=== PATIENT | female | born 1965 | race Caucasian/White ===

== ENCOUNTER 2023-02-04 12:14 | Emergency (ER) | payer MEDICAID ==
[~2023-02-04] VITALS: Ht 165.1 cm; Wt 104.5 kg
[2023-02-04 12:43] LABS: Urine Bacteria NONE SEEN /hpf (None Seen); Urine Blood Negative /uL (Negative); Urine Specific Gravity 1.012 (1.001-1.035); Urine WBC <1 /hpf (0 - 5)
[2023-02-04 13:08] VITALS: BP 136/66
[2023-02-04 13:28] LABS: Basophils # (auto) 0 10 ^3/uL (0-0.2); Basophils % (auto) 0.7 % (0.0-2.0); Eosinophils # (auto) 0.1 10 ^3/uL (0-0.8); Eosinophils % (auto) 2.4 % (0.0-7.0); Hematocrit 38.1 % (36.0-46.0); Hemoglobin 13.2 g/dL (12.2-16.2); Lymphocytes # (auto) 2.3 10 ^3/uL (0.4-5.4); Lymphocytes % (auto) 43.3 % (10.0-50.0); Mean Corpuscular Hemoglobin 31.4 pg (28.0-32.0); Mean Corpuscular Hgb Conc. 34.6 g/dL (32.0-36.0); Mean Corpuscular Volume 90.7 fL (80.0-100.0); Monocytes # (auto) 0.3 10 ^3/uL (0-1.3); Monocytes % (auto) 5.9 % (0.0-12.0); Neutrophils # (auto) 2.6 10 ^3/uL (1.6-8.6); Neutrophils % (auto) 47.7 % (37.0-80.0); Nucleated Red Blood Cells % 0.1 %; Red Cell Distribution Width 12.7 % (11.8-14.3); White Blood Cell 5.4 10^3/uL (4.4-10.8)
[2023-02-04 13:39] LABS: Albumin 3.7 g/dL (3.4-5.0); Calcium 8.8 mg/dL (8.5-10.1); Potassium 3.9 mmol/L (3.5-5.1)
[2023-02-04 13:43] LABS: BUN/Creatinine Ratio 18.2 (10.0-20.0); Bilirubin, Total 0.4 mg/dL (0.2-1.0); Total Protein 7.1 g/dL (6.4-8.2)
[2023-02-04] MEDS ORDERED: KETOROLAC TROMETH 60MG/2ML VIAL IM ONE (14:45)
[2023-02-04] MEDS ORDERED: CIPR-173 PO (14:57)
[2023-02-04] MEDS ORDERED: ZOFR4T PO (14:57)
[2023-02-04] MEDS ORDERED: METR375C PO (14:58)
== END 2023-02-04 15:02 | disposition home or self-care (01) ==
LOC: ER 12:14
DX: N20.0 Calculus of kidney (principal); K57.32 Diverticulitis of large intestine without perforation or abscess without bleeding; E11.9 Type 2 diabetes mellitus without complications; I10 Essential (primary) hypertension
CPT/HCPCS: 36415; 74176; 80053; 81001; 83690; 85025; 96372; 99285; J1885

== ENCOUNTER 2024-06-01 08:29 | Emergency (ER) | payer MEDICAID ==
[~2024-06-01] VITALS: Ht 160 cm; Wt 92.2 kg
[~2024-06-01 08:29] MED LIST: CIPR-173 PO; METR375C PO; ZOFR4T PO
[2024-06-01 09:05] VITALS: BP 131/80; PULSE 74; RESP 16; TEMP 97.7; O2SAT 96
[2024-06-01] MEDS: ACETAMINOPHEN 500 MG TAB PO ONE (09:15)
[2024-06-01] MEDS ORDERED: AZIT500T66 PO (09:17)
[2024-06-01] MEDS: cefTRIAXone SOD 1,000 MG VL IM ONE (09:22)
== END 2024-06-01 09:31 | disposition home or self-care (01) ==
LOC: ER 08:29
DX: J02.9 Acute pharyngitis, unspecified (principal); J04.0 Acute laryngitis; I10 Essential (primary) hypertension; E11.9 Type 2 diabetes mellitus without complications; M19.90 Unspecified osteoarthritis, unspecified site; Z79.899 Other long term (current) drug therapy
CPT/HCPCS: 96372; 99283; J0696

== ENCOUNTER 2025-03-31 08:04 | Inpatient (IN) | payer MEDICAID ==
[~2025-03-31] VITALS: Ht 160 cm; Wt 96.5 kg
[~2025-03-31 08:04] MED LIST changes: +AZIT500T66 PO
--- NOTE | 2025-03-31 08:44 | ED.PDOC ---
GI ASSESSMENT HPI Comments This is a 59 year-old female, with a PMHX of HTN, Asthma, Diverticulitis, and DM, who presents to the ED with a chief complaint of diffuse abdominal pain with associated nausea, migraine, tenderness, and swelling as of yesterday. Patient reports taking beano medication for Diverticulitis. Patient states she went to [facility] days ago and ate a lot of gassy foods like cabbage and carrots. Patient suspects abdominal pain to be associated with diet. Patient has no further complaints at this time and otherwise denies further associated symptoms of chest pain, cough, dysuria, hematuria, or back pain. Chief Complaint: Abdominal Pain Time Seen by MD: 08:27 Primary Care Provider: JEANNE Merchant Notes: Medications, Allergies Allergies: Coded Allergies: NO KNOWN ALLERGIES (Unverified , 05/19/16) Home Meds Active Scripts Azithromycin (Azithromycin) 500 Mg Tab, 1 TAB PO DAILY, #5 TAB Prov:KELLEY FITZGERALD 06/01/24 Metronidazole (Flagyl) 375 Mg Cap, 500 MG PO BID, #20 CAP Prov:KELLEY FITZGERALD 02/04/23 Ondansetron Odt 4MG Tab (ZOFRAN PO) 4 Mg Tb, 4 MG PO BID, #14 TAB ODT TAB-DISSOLVE IN MOUTH, THEN SWALLOW Prov:KELLEY FITZGERALD 02/04/23 Ciprofloxacin Hcl (Cipro) 500 Mg Tab, 1 TAB PO BID, #20 TAB Prov:KELLEY FITZGERALD 02/04/23 Information Source: Patient Mode of Arrival: Ambulatory Timing: Days Duration: Since onset Severity: Moderate Modifying Factors: Food Associated sign and symptoms: Nausea, Abdominal Pain, Other (migraine ) Past Medical History PAST MEDICAL HISTORY: Arthritis, DM, HTN Surgical History: Denies all surgeries 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 History Family History Family History: Reviewed,noncontributory to illness Social History Smoker: Non-Smoker Alcohol: Denies ETOH Use Drugs: Denies Drug Use Lives In: Home Constitutional: denies: chills, diaphoresis, fatigue, fever, malaise, sweats, weakness, others EENTM: denies: blurred vision, double vision, ear bleeding, ear discharge, ear drainage, ear pain, ear ringing, eye pain, eye redness, hearing loss, mouth pain, mouth swelling, nasal discharge, nose bleeding, nose congestion, nose pain, photophobia, tearing, throat pain, throat swelling, voice changes, others Respiratory: denies: cough, hemoptysis, orthopnea, SOB at rest, shortness of breath, SOB with excertion, stridor, wheezing, others Gastrointestinal: reports: abdominal pain, nausea, others (tenderness and swelling of the abdomen ); denies: abdomen distended, blood streaked bowels, constipated, diarrhea, dysphagia, difficulty swallowing, hematemesis, melena, poor appetite, poor fluid intake, rectal bleeding, rectal pain, vomiting Genitourinary: denies: abnormal vagina bleeding, burning, dyspareunia, dysuria, flank pain, frequency, hematuria, incontinence, pain, , vagina discharge, urgency, others Neurological: reports: headache; denies: dizziness, fainting, left sided numbness, left sided weakness, numbness, paresthesia, pre-existing deficit, right sided numbness, right sided weakness, seizure, speech problems, tingling, tremors, weakness, others Musculoskeletal: denies: back pain, gout, joint pain, joint swelling, muscle pain, muscle stiffness, neck pain, others Integumetry: denies: bruises, change in color, change in hair/nails, dryness, laceration, lesions, lumps, rash, wounds, others Allergic/Immunocompromised: denies: Difficulty Healing, Frequent Infections, Hives, Itching, others Hematologic/Lymphatic: denies: anemia, blood clots, easy bleeding, easy bruising, swollen glands, others Endocrine: denies: excessive hunger, excessive sweating, excessive thirst, excessive urination, flushing, intolerance to cold, intolerance to heat, unexplained weight gain, unexplained weight loss, others Psychiatric: denies: anxiety, bipolar disorder, depression, hopeless, panic disorder, schizophrenia, sleepless, suicidal, others All Other Systems: Reviewed and Negative Physical Exam General Appearance: Moderate Distress, Obese HEENT: Normal ENT Inspection, Pharynx Normal, TMs Normal Neck: Full Range of Motion, Non-Tender, Normal, Normal Inspection Respiratory: Chest Non-Tender, Lungs Clear, No Accessory Muscle Use, No Respiratory Distress, Normal Breath Sounds Cardiovascular: No Edema, No JVD, No Murmur, No Gallop, Normal Peripheral Pulses, Regular Rate/Rhythm Breast Exam: Deferred Gastrointestinal: Diffuse (abdominal pain ), No Organomegaly, No Pulsatile Mass, Normal Bowel Sounds, Soft, Tenderness, Other (Mild Abdominal Distention ) Genitalia: Deferred Pelvic: Deferred Rectal: Deferred Extremities: No calf tenderness, Normal capillary refill, Normal inspection, Normal range of motion, Non-tender, No pedal edema Musculoskeletal : Apperance: Normal Neurologic: Alert, dining room host/hostess II-XII nml as Tested, No Motor Deficits, Normal Affect, Normal Mood, No Sensory Deficits Cerebellar Function: Normal Reflexes: Normal Skin: Dry, Normal Color, Warm Peripheral Pulses: 3+ Radial (R), 3+ Radial (L) Lymphatic: No Adenopathy Was a procedure done? Was a procedure done?: No GI differential Dx Differential Diagnosis: Constipation, Gastroenteritis, Dehydration, Bacterial, Parasitic, Viral X-Ray, Labs, Meds, VS Vital Signs Date Time Temp Pulse Resp B/P (MAP) Pulse Ox O2 Delivery O2 Flow Rate FiO2 03/31/25 11:02 55 18 98 Room Air 03/31/25 11:02 97.9 55 18 139/75 (96) 98 97.9 03/31/25 11:01 54 19 139/75 03/31/25 08:04 98.3 64 18 143/73 96 98.3 Lab Test 03/31/25 10:31 03/31/25 08:27 03/31/25 08:15 Range/Units White Blood Count 10.4 4.4-10.8 10^3/uL Red Blood Count 4.13 4.0-5.20 10^6/uL Hemoglobin 13.3 12.2-16.2 g/dL Hematocrit 37.8 36.0-46.0 % Mean Corpuscular Volume 91.7 80.0-100.0 fL Mean Corpuscular Hemoglobin 32.2 H 28.0-32.0 pg Mean Corpuscular Hemoglobin Concent 35.2 32.0-36.0 g/dL Red Cell Distribution Width 12.9 11.8-14.3 % Platelet Count 200 140-450 10^3/uL Mean Platelet Volume 8.4 6.9-10.8 fL Neutrophils (%) (Auto) 64.1 37.0-80.0 % Lymphocytes (%) (Auto) 27.6 10.0-50.0 % Monocytes (%) (Auto) 6.3 0.0-12.0 % Eosinophils (%) (Auto) 1.3 0.0-7.0 % Basophils (%) (Auto) 0.7 0.0-2.0 % Neutrophils # (Auto) 6.7 1.6-8.6 10 ^3/uL Lymphocytes # (Auto) 2.9 0.4-5.4 10 ^3/uL Monocytes # (Auto) 0.7 0-1.3 10 ^3/uL Eosinophils # (Auto) 0.1 0-0.8 10 ^3/uL Basophils # (Auto) 0.1 0-0.2 10 ^3/uL Nucleated Red Blood Cells 0.1 % Sodium Level 138 136-145 mmol/L Potassium Level 4.3 3.5-5.1 mmol/L Chloride Level 101 98-107 mmol/L Carbon Dioxide Level 31 20-31 mmol/L Anion Gap 6 5-15 Blood Urea Nitrogen 8 L 9-23 mg/dL Creatinine 0.78 0.550-1.02 mg/dL Glomerular Filtration Rate Calc 87 >90 mL/min BUN/Creatinine Ratio 10.3 10.0-20.0 Serum Glucose 168 H 74-106 mg/dL Calcium Level 9.8 8.7-10.4 mg/dL Urine Color Light-yellow Yellow Urine Clarity Clear Clear Urine pH 5.5 5.0-9.0 Urine Specific Kim 1.009 1.001-1.035 Urine Protein Negative Negative Urine Ketones Negative Negative Urine Blood Negative Negative /uL Urine Nitrite Negative Negative Urine Bilirubin Negative Negative Urine Urobilinogen Normal Negative mg/dL Urine Leukocyte Esterase Negative Negative /uL Urine RBC <1 0 - 4 /hpf Urine Microscopic WBC < 1 0-5 /HPF Urine Squamous Epithelial Cells Few <5 /hpf Urine Bacteria None seen None Seen /hpf Urine Glucose 1+ H Normal mg/dL POC Glucose 236 H 70-106 mg/dl Current Medications Medications (Trade) Dose Ordered Sig/Melonie Route Start Time Stop Time Status Last Admin Sodium Chloride 1,000 ml @ 1,000 mls/hr Q1H ONCE IV 03/31/25 10:15 03/31/25 11:14 DC 03/31/25 10:59 Morphine Sulfate 4 mg ONCE ONCE IV 03/31/25 10:15 03/31/25 10:16 DC 03/31/25 11:01 Ondansetron HCl (Zofran) 4 mg ONCE ONCE IV 03/31/25 10:15 03/31/25 10:16 DC 03/31/25 11:00 Patient alert. Complaining of abdominal pain. Abdomen is distended. Vitals stable. Establish intravenous access. Was given fluids. Blood sugar elevated. Reviewed her history. Explained to the patient. Continue monitoring. Time of 1ST Reevaluation: 09:40 Reevaluation 1ST: Unchanged Patient Education/Counseling: Diagnosis, Treatment Family Education/Counseling: No Family Present SEPSIS Sepsis Screen Date sepsis recognized/suspect: Mar 31, 2025 Time Sepsis recognized/suspect: 803 Recent Procedure: No On Antibiotic Therapy: No Respiratory Rate >20: No Heart Rate >90: No Temp<36 C (96.8 F) or >38.3 C: No SBP <90 or MAP <65 mmHG: No New Acute Mental Status Change: No Is the patient on CPAP, BIPAP,: No Physician Orders Ct Ab Pel Wo Con-No Oral Or Iv (03/31/25 10:08) Vital Signs Date Time Temp Pulse Resp B/P (MAP) Pulse Ox O2 Delivery O2 Flow Rate FiO2 03/31/25 11:02 55 18 98 Room Air 03/31/25 11:02 97.9 55 18 139/75 (96) 98 97.9 03/31/25 11:01 54 19 139/75 03/31/25 08:04 98.3 64 18 143/73 96 98.3 Laboratory Tests Test 03/31/25 10:31 White Blood Count 10.4 10^3/uL (4.4-10.8) Medications Medications Dose Ordered Sig/Melonie Route Start Time Stop Time Status Last Admin Dose Admin Morphine Sulfate 4 mg ONCE ONCE IV 03/31/25 10:15 03/31/25 10:16 DC 03/31/25 11:01 Ondansetron HCl 4 mg ONCE ONCE IV 03/31/25 10:15 03/31/25 10:16 DC 03/31/25 11:00 Sodium Chloride 1,000 ml @ 1,000 mls/hr Q1H ONCE IV 03/31/25 10:15 03/31/25 11:14 DC 03/31/25 10:59 Departure 1 Departure Time of Disposition: 10:07 Impression: Primary Impression: Acute abdominal pain Additional Impression: Diverticulitis of intestine Qualified Codes: K57.80 - Diverticulitis of intestine, part unspecified, with perforation and abscess without bleeding Disposition: ADMITTED INPATIENT Admit to: Med Surg Condition: Guarded Critical Care Note Critical Care Time?: No Stability Stability form required: No Heart Score Heart Score: Heart Score Response (Comments) Value History N/A 0 EKG N/A 0 Age N/A 0 Risk Factors N/A 0 Troponin N/A 0 Total 0 I personally scribed for MICKEY BLEVINS MD ([email or web address]) on 03/31/25 at 08:44. Electronically submitted by Yvonne Lemus ([employer]). I personally scribed for MICKEY BLEVINS MD ([email or web address]) on 03/31/25 at 08:50. Electronically submitted by Yvonne Lemus ([employer]). MICKEY BLEVINS MD Mar 31, 2025 08:44
[2025-03-31 09:59] LABS: Urine Protein, UAD Negative (Negative)
[2025-03-31 10:46] LABS: Hematocrit 37.8 % (36.0-46.0); Hemoglobin 13.3 g/dL (12.2-16.2); Mean Corpuscular Hemoglobin 32.2 pg (28.0-32.0); Mean Corpuscular Volume 91.7 fL (80.0-100.0); Nucleated Red Blood Cells % 0.1 %
[2025-03-31 10:56] LABS: Chloride 101 mmol/L (98-107); Potassium 4.3 mmol/L (3.5-5.1); Sodium 138 mmol/L (136-145)
[2025-03-31 10:57] LABS: Anion Gap 6 (5-15); Carbon Dioxide 31 mmol/L (20-31)
[2025-03-31 10:58] LABS: Calcium 9.8 mg/dL (8.7-10.4)
[2025-03-31] MEDS: SODIUM CHLORIDE 0.9% 1,000 ML IV ONE ×2 (10:59→12:15)
[2025-03-31] MEDS: ONDANSETRON HCL 4 MG/2 ML VIAL IV ONE (11:00)
[2025-03-31] MEDS: MORPHINE SULFATE 4 MG/ML SYR/VIAL IV ONE (11:01)
[2025-03-31 11:03] LABS: BUN/Creatinine Ratio 10.3 (10.0-20.0); Blood Urea Nitrogen 8 mg/dL (9-23); Glucose 168 mg/dL (74-106)
[2025-03-31 11:19] VITALS: PULSE 84; RESP 15; O2SAT 96
--- NOTE | 2025-03-31 11:19 | DVH ---
EXAM DESCRIPTION: CT CT AB PEL WO CON-NO ORAL OR IV CLINICAL HISTORY: diverticulitis COMPARISON: CT CT AB PEL WO CON-NO ORAL OR IV on DOS: 02/04/23 TECHNIQUE: CT abdomen and pelvis without IV contrast was performed. Coronal and sagittal MPR images were generat ed.CTDI/ DLP = 25.75 / 1171.29 Dose reduction technique with one or more of the following methods was performed: Automated exposure control, adjustment of the mA and/or kV according to patient size, use of iterative reconstruction [place] FINDINGS: Lower chest: Clear lung bases. Liver: Homogenous in attenuation. . Biliary: No calcified gallstones. No biliary ductal dilatation. Pancreas: No fat stranding or focal lesion. Spleen: Normal in size.. Adrenal glands: No nodularity. No nodularity Kidneys: Punctate right renal calculus. No left renal calculi. No hydroureteronephrosis. . No nephrol ithiasis. No hydroureteronephrosis Bladder: No bladder wall thickening. Reproductive organs: Normal. Bowel: Colonic diverticulosis without evidence of diverticulitis. However there is a diverticulum not ed at the jejunum in the left upper abdomen with significant surrounding fat stranding and a small am ount of contained extraluminal air around the region. Normal appendix. Vessels: Normal caliber abdominal aorta. . 550.0 mA Lymph nodes: No suspicious lymph nodes. No suspicious lymph nodes Soft tissues: Unremarkable. . Osseous structures: No acute fracture or subluxation. No suspicious osseous lesions. Degenerative c hanges of the visualized thoracolumbar spine. IMPRESSION: 1. Findings suspicious for jejunal diverticulitis at the left upper abdomen. There is small amount of extraluminal air around this region, suspicious for contained perforation. Recommend surgical consul tation. 2. Colonic diverticulosis without evidence of colonic diverticulitis. 3. Punctate right renal calculus. No hydronephrosis. Critical findings discussed with Dr. Nima Rosas by Dr. Clemons via phone on 03/31/2025 11:16 AM.
[2025-03-31] MEDS: PIPERACILLIN-TAZOB 3.375GM 100 ML IV ONE (11:41)
[2025-03-31] MEDS: CLINDAMYCIN 600MG IV 50 ML IV ONE (11:41)
[2025-03-31] MEDS: ACCU-CHEK COMFORT CURVE STRIP VI SCH (12:00)
[2025-03-31] MEDS ORDERED: DEXTROSE (50%) 50ML SYRG IV PRN (12:00)
[2025-03-31] MEDS ORDERED: ONDA-188 PO (12:11)
[2025-03-31] MEDS ORDERED: PANT40TA57 PO (12:11)
[2025-03-31] MEDS ORDERED: TIZA6CAP PO (12:11)
[2025-03-31] MEDS ORDERED: SIME80CH49 PO (12:11)
[2025-03-31] MEDS ORDERED: FURO20TA4 PO (12:11)
[2025-03-31] MEDS ORDERED: ATOR40TA52 PO (12:11)
[2025-03-31] MEDS ORDERED: LOSA-535 PO (12:11)
--- NOTE | 2025-03-31 12:51 | DVHHP2 ---
History of Present Illness Reason for Visit: abdominal pain History of Present Illness Amairani Shipley is a 59-year-old female with past medial history of hypertension, hyperlipidemia, diabetes, asthma, and diverticulosis, who came to the hospital for abdominal pain. Patient woke up 03/30/2025 at 0300 with severe abdominal pain and nausea. She did not come to the hospital at that time, hoping her symptoms would resolve. This morning her symptoms were worsening and now her abdomen is distended she decided to come to the hospital. She states she has not been able to eat anything since 03/29/2025. Cardiovascular: HTN, hyperipidemia Pulmonary: Asthma GI: Diverticulosis Endocrine: Diabetes Past Surgical History: (x 4), Other ([place]) Smoke: No ALCOHOL: none Drugs: Marijuana Lives: with Family Domestic Violence: Neg Review of Systems Constitutional: No: Fever, Chills, Sweats, Weakness, Malaise, Other Eyes: No: Pain, Vision change, Conjunctivae inflammation, Eyelid inflammation, Other, Redness ENT: No: Ear pain, Ear discharge, Nose pain, Nose discharge, Nose congestion, Mouth pain, Mouth swelling, Throat pain, Throat swelling, Other Respiratory: No: Cough, Dry, Shortness of breath, SOB with excertion, Wheezing, Hemoptysis, Pleuritic Pain, Sputum, Wheezing, Other Cardiovascular: No: Chest Pain, Palpitations, Orthopnea, Paroxysmal Noc. Dyspnea, Edema, Lt Headedness, Other Gastrointestinal: Nausea, Abdominal Pain; No: Vomiting, Diarrhea, Constipation, Melena, Hematochezia, Other Genitourinary: No Dysuria, No Frequency, No Incontinence, No Hematuria, No Retention, No Other Musculoskeletal: No: other, neck pain, shoulder pain, arm pain, back pain, hand pain, leg pain, foot pain Skin: No: Rash, Lesions, Jaundice, Bruising, Other Neurological: No: Weakness, Numbness, Incoordination, Change in speech, Confusion, Seizures, Other Allergies: Coded Allergies: NO KNOWN ALLERGIES (Unverified , 05/19/16) Exam Vital Signs Vital Signs Date Time Temp Pulse Resp B/P (MAP) Pulse Ox O2 Delivery O2 Flow Rate FiO2 03/31/25 11:19 84 15 96 Room Air* 0 21 03/31/25 11:02 97.9 139/75 (96) 97.9 General Appearance: Alert, Oriented X3, Cooperative, moderate distress HEENT: Atraumatic, PERRLA, Other (mucous membr dry) Respiratory: Clear to auscultation, Normal air movement Cardiovascular: Regular rate, Normal S1, Normal S2 Abdominal: Other (hypoactive bowel sounds, distended, tender to palpitation) Extremities: No clubbing, No cyanosis, No edema, Normal pulses, No tenderness/swelling Skin: No rashes, No breakdown, No significant lesion Neuro: Normal gait, Normal speech, Strength at 5/5 X4 ext, Normal tone Psych/Mental Status: Mental status NL, Mood NL Labs/Xrays Labs Test 03/31/25 10:31 03/31/25 08:27 03/31/25 08:15 Range/Units White Blood Count 10.4 4.4-10.8 10^3/uL Red Blood Count 4.13 4.0-5.20 10^6/uL Hemoglobin 13.3 12.2-16.2 g/dL Hematocrit 37.8 36.0-46.0 % Mean Corpuscular Volume 91.7 80.0-100.0 fL Mean Corpuscular Hemoglobin 32.2 H 28.0-32.0 pg Mean Corpuscular Hemoglobin Concent 35.2 32.0-36.0 g/dL Red Cell Distribution Width 12.9 11.8-14.3 % Platelet Count 200 140-450 10^3/uL Mean Platelet Volume 8.4 6.9-10.8 fL Neutrophils (%) (Auto) 64.1 37.0-80.0 % Lymphocytes (%) (Auto) 27.6 10.0-50.0 % Monocytes (%) (Auto) 6.3 0.0-12.0 % Eosinophils (%) (Auto) 1.3 0.0-7.0 % Basophils (%) (Auto) 0.7 0.0-2.0 % Neutrophils # (Auto) 6.7 1.6-8.6 10 ^3/uL Lymphocytes # (Auto) 2.9 0.4-5.4 10 ^3/uL Monocytes # (Auto) 0.7 0-1.3 10 ^3/uL Eosinophils # (Auto) 0.1 0-0.8 10 ^3/uL Basophils # (Auto) 0.1 0-0.2 10 ^3/uL Nucleated Red Blood Cells 0.1 % Sodium Level 138 136-145 mmol/L Potassium Level 4.3 3.5-5.1 mmol/L Chloride Level 101 98-107 mmol/L Carbon Dioxide Level 31 20-31 mmol/L Anion Gap 6 5-15 Blood Urea Nitrogen 8 L 9-23 mg/dL Creatinine 0.78 0.550-1.02 mg/dL Glomerular Filtration Rate Calc 87 >90 mL/min BUN/Creatinine Ratio 10.3 10.0-20.0 Serum Glucose 168 H 74-106 mg/dL Calcium Level 9.8 8.7-10.4 mg/dL Urine Color Light-yellow Yellow Urine Clarity Clear Clear Urine pH 5.5 5.0-9.0 Urine Specific [place] 1.009 1.001-1.035 Urine Protein Negative Negative Urine Ketones Negative Negative Urine Blood Negative Negative /uL Urine Nitrite Negative Negative Urine Bilirubin Negative Negative Urine Urobilinogen Normal Negative mg/dL Urine Leukocyte Esterase Negative Negative /uL Urine RBC <1 0 - 4 /hpf Urine Microscopic WBC < 1 0-5 /HPF Urine Squamous Epithelial Cells Few <5 /hpf Urine Bacteria None seen None Seen /hpf Urine Glucose 1+ H Normal mg/dL POC Glucose 236 H 70-106 mg/dl CT CT AB PEL WO CON-NO ORAL OR IV FINDINGS: Lower chest: Clear lung bases. Liver: Homogenous in attenuation. . Biliary: No calcified gallstones. No biliary ductal dilatation. Pancreas: No fat stranding or focal lesion. Spleen: Normal in size.. Adrenal glands: No nodularity. No nodularity Kidneys: Punctate right renal calculus. No left renal calculi. No hydroureteronephrosis. . No nephrolithiasis. No hydroureteronephrosis Bladder: No bladder wall thickening. Reproductive organs: Normal. Bowel: Colonic diverticulosis without evidence of diverticulitis. However there is a diverticulum noted at the jejunum in the left upper abdomen with significant surrounding fat stranding and a small amount of contained extraluminal air around the region. Normal appendix. Vessels: Normal caliber abdominal aorta. . 550.0 mA Lymph nodes: No suspicious lymph nodes. No suspicious lymph nodes Soft tissues: Unremarkable. . Osseous structures: No acute fracture or subluxation. No suspicious osseous lesions. Degenerative changes of the visualized thoracolumbar spine. IMPRESSION: 1. Findings suspicious for jejunal diverticulitis at the left upper abdomen. There is small amount of extraluminal air around this region, suspicious for contained perforation. Recommend surgical consultation. 2. Colonic diverticulosis without evidence of colonic diverticulitis. 3. Punctate right renal calculus. No hydronephrosis. SEPSIS Sepsis Screen Date sepsis recognized/suspect: Mar 31, 2025 Time Sepsis recognized/suspect: 08 Recent Procedure: No On Antibiotic Therapy: No Respiratory Rate >20: No Heart Rate >90: No Temp<36 C (96.8 F) or >38.3 C: No SBP <90 or MAP <65 mmHG: No New Acute Mental Status Change: No Is the patient on CPAP, BIPAP,: No Physician Orders Ct Ab Pel Wo Con-No Oral Or Iv (03/31/25 10:08) Piperacillin-Tazob 3.375gm (Zosyn 3.375g (03/31/25 11:30) Clindamycin 600mg Iv (Cleocin Iv) (03/31/25 11:30) Admit (03/31/25 11:48) Code Status (03/31/25 11:48) Ondansetron Hcl (Zofran) (03/31/25 12:00) Complete Blood Count (04/01/25 04:00) Comprehensive Metabolic Panel (04/01/25 04:00) Npo (Nothing By Mouth) Diet (03/31/25 Lunch) Condition: Critical (03/31/25 11:48) Acetaminophen Tablet (Tylenol Tablet) (03/31/25 12:00) Morphine Sulfate Injection (03/31/25 12:00) Vital Signs Date Time Temp Pulse Resp B/P (MAP) Pulse Ox O2 Delivery O2 Flow Rate FiO2 03/31/25 11:19 84 15 96 Room Air* 0 21 03/31/25 11:02 55 18 98 Room Air 03/31/25 11:02 97.9 55 18 139/75 (96) 98 97.9 03/31/25 11:01 54 19 139/75 03/31/25 08:04 98.3 64 18 143/73 96 98.3 Laboratory Tests Test 03/31/25 10:31 White Blood Count 10.4 10^3/uL (4.4-10.8) Medications Medications Dose Ordered Sig/Melonie Route Start Time Stop Time Status Last Admin Dose Admin Morphine Sulfate 4 mg ONCE ONCE IV 03/31/25 10:15 03/31/25 10:16 DC 03/31/25 11:01 4 MG Ondansetron HCl 4 mg ONCE ONCE IV 03/31/25 10:15 03/31/25 10:16 DC 03/31/25 11:00 4 MG Sodium Chloride 1,000 ml @ 1,000 mls/hr Q1H ONCE IV 03/31/25 10:15 03/31/25 11:14 DC 03/31/25 10:59 1,000 MLS/HR Assessment/Plan Assessment/Plan Assessment: Diverticulitis of intestine, Hyperglycemia, Hypertension, Diabetes, Hyperlipidemia, Asthma, Obesity, Plan: Admit to Med-Surg, Surgical consult, IV antibiotics, IV hydration, NPO, Pain management, A1c, Home medications reconciled, Plan discussed with: Patient My Orders Orders - ZACK PERSAUD Procedure Category Date Status Time Admit ADMIT 03/31/25 Verified 11:48 Code Status CODE 03/31/25 Verified 11:48 Ondansetron Hcl PHA 03/31/25 Verified (Zofran) 12:00 Complete Blood Count LAB 04/01/25 Verified 04:00 Comprehensive LAB 04/01/25 Verified Metabolic Panel 04:00 Npo (Nothing By DIET 03/31/25 Verified Mouth) Diet Lunch Condition: Critical CHRISTINE 03/31/25 Verified 11:48 Acetaminophen Tablet PHA 03/31/25 Verified (Tylenol Tablet) 12:00 Morphine Sulfate PHA 03/31/25 Verified Injection 12:00 Date of Service: Mar 31, 2025 Billing Provider: ZACK PERSAUD Common Visit Codes: [id number] INP/OBS CARE (MOD) ZACK PERSAUD Mar 31, 2025 12:51
[2025-03-31] MEDS: TIZANIDINE HCL 6 MG PO SCH (14:00)
[2025-03-31] MEDS: InsuLIN REG 1unit/0.01ml Soln (100units/ml) SC SCH (14:18)
[2025-03-31] MEDS: cefTRIAXone 1GM/50ML D5W 50 ML IV ONE (14:32)
[2025-03-31] MEDS: ONDANSETRON HCL 4 MG/2 ML VIAL IV PRN (14:39)
[2025-03-31] MEDS: MORPHINE SULFATE INJ 2 MG/ml SYRG IV PRN (14:41)
[2025-03-31 21:00] VITALS: BP 134/59; PULSE 54; RESP 17; TEMP 97.7; O2SAT 95
--- NOTE | 2025-03-31 21:42 | DVHINCON2 ---
Date of service: Mar 31, 2025 Allergies: Coded Allergies: NO KNOWN ALLERGIES (Unverified , 05/19/16) Home Meds Reported Medications Ondansetron HCl (Ondansetron Hydrochloride) 4 Mg Tab, 1 TAB PO Q8HP PRN 03/31/25 Pantoprazole Sodium Sesquihydr (Pantoprazole Sodium Dr) 40 Mg Tab, 1 TAB PO CHAPO LY 03/31/25 Atorvastatin Calcium (ATORVASTATIN CALCIUM) 40 Mg Tab, 1 TAB PO HS 03/31/25 Furosemide (Furosemide) 20 Mg Tab, 1 TAB PO DAILY 03/31/25 Losartan Potassium (Losartan Potassium) 100 Mg Tab, 1 TAB PO DAILY 03/31/25 Tizanidine HCl (Tizanidine Hydrochloride) 6 Mg Cap, 1 CAP PO TID 03/31/25 Simethicone (Simethicone) 80 Mg Chw, 2 TAB PO BID 03/31/25 Discontinued Scripts Azithromycin (Azithromycin) 500 Mg Tab, 1 TAB PO DAILY, #5 TAB Prov:KELLEY FITZGERALD 06/01/24 Metronidazole (Flagyl) 375 Mg Cap, 500 MG PO BID, #20 CAP Prov:KELLEY FITZGERALD 02/04/23 Ondansetron Odt 4MG Tab (ZOFRAN PO) 4 Mg Tb, 4 MG PO BID, #14 TAB ODT TAB-DISSOLVE IN MOUTH, THEN SWALLOW Prov:KELLEY FITZGERALD 02/04/23 Ciprofloxacin Hcl (Cipro) 500 Mg Tab, 1 TAB PO BID, #20 TAB Prov:KELLEY FITZGERALD 02/04/23 Current Medications Current Medications Medications (Trade) Dose Ordered Sig/Melonie Route PRN Reason Start Time Stop Time Status Last Admin Ondansetron HCl (Zofran) 4 mg Q4HP PRN IV NAUSEA / VOMITING 03/31/25 12:00 03/31/25 18:59 Acetaminophen (Tylenol Tablet) 650 mg Q6HP PRN PO PAIN SCALE 1-3 OR TEMP>100.4 03/31/25 12:00 Morphine Sulfate 2 mg Q4HPRN PRN IV SEVERE PAIN (7-10 PAIN SCALE) 03/31/25 12:00 03/31/25 18:59 Diagnostic Test (Pha) (Accu-Chek Comfort Curve T) 1 strip Q6HR 03/31/25 12:00 03/31/25 18:00 Insulin Human Regular (InsuLIN R) Q6HR SC 03/31/25 12:00 03/31/25 18:57 Dextrose 50 ml UD PRN IV Blood Sugar LESS THAN 60 03/31/25 12:00 Metronidazole 100 ml @ 100 mls/hr Q8HR IV 03/31/25 14:00 03/31/25 14:53 Ceftriaxone Sodium 50 ml @ 100 mls/hr DAILY@09 IV 04/01/25 09:00 Pantoprazole Sodium (Protonix) 40 mg DAILY IV 04/01/25 10:00 03/31/25 21:36 DC Dimethicone (Mylicon Tab) 160 mg BID PO 03/31/25 22:00 Atorvastatin Calcium (Lipitor) 40 mg HS PO 03/31/25 22:00 Losartan Potassium (Cozaar Tablet) 100 mg DAILY PO 04/01/25 10:00 Patient Own Medication 1 cap TID PO 03/31/25 14:00 Pantoprazole Sodium (Protonix) 40 mg BID IV 03/31/25 22:00 UNV Vital Signs Vital Signs Date Time Temp Pulse Resp B/P (MAP) Pulse Ox O2 Delivery O2 Flow Rate FiO2 03/31/25 20:00 56 03/31/25 19:29 18 152/74 03/31/25 18:00 98.6 98 98.6 03/31/25 11:19 Room Air* 0 21 Labs/Diagnostic Data Labs Test 03/31/25 18:54 03/31/25 10:31 03/31/25 08:27 Range/Units POC Glucose 152 H 70-106 mg/dl White Blood Count 10.4 4.4-10.8 10^3/uL Red Blood Count 4.13 4.0-5.20 10^6/uL Hemoglobin 13.3 12.2-16.2 g/dL Hematocrit 37.8 36.0-46.0 % Mean Corpuscular Volume 91.7 80.0-100.0 fL Mean Corpuscular Hemoglobin 32.2 H 28.0-32.0 pg Mean Corpuscular Hemoglobin Concent 35.2 32.0-36.0 g/dL Red Cell Distribution Width 12.9 11.8-14.3 % Platelet Count 200 140-450 10^3/uL Mean Platelet Volume 8.4 6.9-10.8 fL Neutrophils (%) (Auto) 64.1 37.0-80.0 % Lymphocytes (%) (Auto) 27.6 10.0-50.0 % Monocytes (%) (Auto) 6.3 0.0-12.0 % Eosinophils (%) (Auto) 1.3 0.0-7.0 % Basophils (%) (Auto) 0.7 0.0-2.0 % Neutrophils # (Auto) 6.7 1.6-8.6 10 ^3/uL Lymphocytes # (Auto) 2.9 0.4-5.4 10 ^3/uL Monocytes # (Auto) 0.7 0-1.3 10 ^3/uL Eosinophils # (Auto) 0.1 0-0.8 10 ^3/uL Basophils # (Auto) 0.1 0-0.2 10 ^3/uL Nucleated Red Blood Cells 0.1 % Sodium Level 138 136-145 mmol/L Potassium Level 4.3 3.5-5.1 mmol/L Chloride Level 101 98-107 mmol/L Carbon Dioxide Level 31 20-31 mmol/L Anion Gap 6 5-15 Blood Urea Nitrogen 8 L 9-23 mg/dL Creatinine 0.78 0.550-1.02 mg/dL Glomerular Filtration Rate Calc 87 >90 mL/min BUN/Creatinine Ratio 10.3 10.0-20.0 Serum Glucose 168 H 74-106 mg/dL Hemoglobin A1c 8.5 H <5.7 % A1C Calcium Level 9.8 8.7-10.4 mg/dL Urine Color Light-yellow Yellow Urine Clarity Clear Clear Urine pH 5.5 5.0-9.0 Urine Specific [place] 1.009 1.001-1.035 Urine Protein Negative Negative Urine Ketones Negative Negative Urine Blood Negative Negative /uL Urine Nitrite Negative Negative Urine Bilirubin Negative Negative Urine Urobilinogen Normal Negative mg/dL Urine Leukocyte Esterase Negative Negative /uL Urine RBC <1 0 - 4 /hpf Urine Microscopic WBC < 1 0-5 /HPF Urine Squamous Epithelial Cells Few <5 /hpf Urine Bacteria None seen None Seen /hpf Urine Glucose 1+ H Normal mg/dL Assessment AFEBRILE VSS PAIN ABD NO NV WBC WNL CT SCAN POSSIBLE CONTAINED JEJUNAL DIVERTICULUM PERFORATION KEEP NPO NG TO LCS IV ABX REPEAT LABS AND PT/PTT PROTONIX 40 MG IV BID DISCUSSED WITH NURSE ONGOING CARE AND CLOSE OBSERVATION Plan discussed with: Other RAMY CHEN MD Mar 31, 2025 21:42
[2025-03-31] MEDS: ATORVASTATIN 20 MG TAB PO SCH (22:00)
[2025-03-31] MEDS: SIMETHICONE 80 MG CHEWABLE TABLET PO SCH (22:00)
[2025-03-31 22:04] LABS: INR 1.02 (0.9-1.15); Partial Thromboplastin Time 27.6 SEC (24.5-34.5); Prothrombin Time 10.8 sec (9.3-11.8)
[2025-03-31] MEDS: PANTOPRAZOLE 40 MG/10 ML VIAL INJ IV SCH (22:29)
[2025-04-01] VITALS (8 sets, daily range): BP systolic 131–173; BP diastolic 63–89; PULSE 57–73; RESP 15–20; TEMP 96.7–98.7; O2SAT 92–99
--- NOTE | 2025-04-01 | DVH ---
CHEST RADIOGRAPH Indication: NG TUBE PLACEMENT Technique: 2 frontal views Comparison: None FINDINGS: Lines and Tubes: Enteric tube seen following the course of the esophagus to the level of the middle m ediastinum, and not appreciated distally. Lungs: No focal consolidation. Pleura: No effusion or pneumothorax. Cardiomediastinal contours: Unremarkable. Bones: No acute osseous abnormality. IMPRESSION: 1. Expected proximal course of the enteric tube, distal portion not well visualized. Consider dedicat ed radiograph of the upper abdomen to confirm placement. 2. No acute cardiopulmonary abnormality.
--- NOTE | 2025-04-01 02:14 | DVH ---
CHEST RADIOGRAPH Indication: ng tube placement Technique: 1 view Comparison: XY CHEST XRAY 1 VIEW on DOS: 03/31/25 FINDINGS: Lines and Tubes: Enteric tube seen coursing midline subdiaphragmatically, distal tip not visualized. Lungs: No focal consolidation. Pleura: No effusion or pneumothorax. Cardiomediastinal contours: Unremarkable. Bones: No acute osseous abnormality. IMPRESSION: 1. Enteric tube with expected thoracic course extending below the level of the hemidiaphragms, not we ll visualized in the upper abdomen.
[2025-04-01 06:24] LABS: Hematocrit 37.4 % (36.0-46.0); Hemoglobin 13.3 g/dL (12.2-16.2); Mean Corpuscular Hemoglobin 33.0 pg (28.0-32.0); Mean Corpuscular Volume 93.0 fL (80.0-100.0); Nucleated Red Blood Cells % 0.1 %
[2025-04-01 06:35] LABS: Alanine Aminotransferase 20 U/L (7-40); Albumin 4.4 g/dL (3.2-4.8); Alkaline Phosphatase 83 U/L (46-116); Anion Gap 9 (5-15); BUN/Creatinine Ratio 10.7 (10.0-20.0); Calcium 9.0 mg/dL (8.7-10.4); Carbon Dioxide 27 mmol/L (20-31); Chloride 104 mmol/L (98-107); Potassium 3.8 mmol/L (3.5-5.1); Sodium 140 mmol/L (136-145); Total Protein 6.9 g/dL (5.7-8.2)
[2025-04-01 06:36] LABS: Bilirubin, Total 0.6 mg/dL (0.2-1.0)
[2025-04-01 06:53] LABS: Blood Urea Nitrogen 8 mg/dL (9-23); Glucose 164 mg/dL (74-106)
[2025-04-01] MEDS: cefTRIAXone 1GM/50ML D5W 50 ML IV SCH (09:34)
[2025-04-01] MEDS: LOSARTAN POTASSIUM 50 MG TAB PO SCH (09:35)
[2025-04-01] MEDS ORDERED: PANTOPRAZOLE 40 MG/10 ML VIAL INJ IV SCH (10:00)
--- NOTE | 2025-04-01 10:02 | DVHINCON2 ---
Date of service: Apr 01, 2025 Family History: FH: liver disease G8 MOTHER G8 FATHER Allergies: Coded Allergies: NO KNOWN ALLERGIES (Unverified , 05/19/16) Home Meds Reported Medications Ondansetron HCl (Ondansetron Hydrochloride) 4 Mg Tab, 1 TAB PO Q8HP PRN 03/31/25 Pantoprazole Sodium Sesquihydr (Pantoprazole Sodium Dr) 40 Mg Tab, 1 TAB PO DAILY 03/31/25 Atorvastatin Calcium (ATORVASTATIN CALCIUM) 40 Mg Tab, 1 TAB PO HS 03/31/25 Furosemide (Furosemide) 20 Mg Tab, 1 TAB PO DAILY 03/31/25 Losartan Potassium (Losartan Potassium) 100 Mg Tab, 1 TAB PO DAILY 03/31/25 Tizanidine HCl (Tizanidine Hydrochloride) 6 Mg Cap, 1 CAP PO TID 03/31/25 Simethicone (Simethicone) 80 Mg Chw, 2 TAB PO BID 03/31/25 Discontinued Scripts Azithromycin (Azithromycin) 500 Mg Tab, 1 TAB PO DAILY, #5 TAB Prov:KELLEY FITZGERALD 06/01/24 Metronidazole (Flagyl) 375 Mg Cap, 500 MG PO BID, #20 CAP Prov:KELLEY FITZGERALD 02/04/23 Ondansetron Odt 4MG Tab (ZOFRAN PO) 4 Mg Tb, 4 MG PO BID, #14 TAB ODT TAB-DISSOLVE IN MOUTH, THEN SWALLOW Prov:KELLEY FITZGERALD 02/04/23 Ciprofloxacin Hcl (Cipro) 500 Mg Tab, 1 TAB PO BID, #20 TAB Prov:KELLEY FITZGERALD 02/04/23 Current Medications Current Medications Medications (Trade) Dose Ordered Sig/Melonie Route PRN Reason Start Time Stop Time Status Last Admin Ondansetron HCl (Zofran) 4 mg Q4HP PRN IV NAUSEA / VOMITING 03/31/25 12:00 03/31/25 18:59 Acetaminophen (Tylenol Tablet) 650 mg Q6HP PRN PO PAIN SCALE 1-3 OR TEMP>100.4 03/31/25 12:00 Morphine Sulfate 2 mg Q4HPRN PRN IV SEVERE PAIN (7-10 PAIN SCALE) 03/31/25 12:00 04/01/25 09:58 DC 04/01/25 06:35 Diagnostic Test (Pha) (Accu-Chek Comfort Curve T) 1 strip Q6HR 03/31/25 12:00 04/01/25 06:00 Insulin Human Regular (InsuLIN R) Q6HR SC 03/31/25 12:00 03/31/25 18:57 Dextrose 50 ml UD PRN IV Blood Sugar LESS THAN 60 03/31/25 12:00 Metronidazole 100 ml @ 100 mls/hr Q8HR IV 03/31/25 14:00 04/01/25 06:34 Ceftriaxone Sodium 50 ml @ 100 mls/hr DAILY@09 IV 04/01/25 09:00 04/01/25 09:34 Pantoprazole Sodium (Protonix) 40 mg DAILY IV 04/01/25 10:00 03/31/25 21:36 DC Dimethicone (Mylicon Tab) 160 mg BID PO 03/31/25 22:00 Atorvastatin Calcium (Lipitor) 40 mg HS PO 03/31/25 22:00 Losartan Potassium (Cozaar Tablet) 100 mg DAILY PO 04/01/25 10:00 Patient Own Medication 1 cap TID PO 03/31/25 14:00 Pantoprazole Sodium (Protonix) 40 mg BID IV 03/31/25 22:00 04/01/25 09:34 Hydromorphone HCl (Dilaudid Injection) 0.25 mg Q4HPRN PRN IV SEVERE PAIN (7-10 PAIN SCALE) 04/01/25 10:00 UNV Vital Signs Vital Signs Date Time Temp Pulse Resp B/P (MAP) Pulse Ox O2 Delivery O2 Flow Rate FiO2 04/01/25 08:00 Room Air* 0 21 04/01/25 07:05 72 18 145/83 04/01/25 05:00 97.7 92 97.7 Labs/Diagnostic Data Labs Test 04/01/25 06:22 04/01/25 06:02 03/31/25 21:30 03/31/25 10:31 Range/Units POC Glucose 177 H 70-106 mg/dl White Blood Count 8.8 4.4-10.8 10^3/uL Red Blood Count 4.02 4.0-5.20 10^6/uL Hemoglobin 13.3 12.2-16.2 g/dL Hematocrit 37.4 36.0-46.0 % Mean Corpuscular Volume 93.0 80.0-100.0 fL Mean Corpuscular Hemoglobin 33.0 H 28.0-32.0 pg Mean Corpuscular Hemoglobin Concent 35.5 32.0-36.0 g/dL Red Cell Distribution Width 12.9 11.8-14.3 % Platelet Count 187 140-450 10^3/uL Mean Platelet Volume 8.6 6.9-10.8 fL Neutrophils (%) (Auto) 66.1 37.0-80.0 % Lymphocytes (%) (Auto) 23.8 10.0-50.0 % Monocytes (%) (Auto) 7.3 0.0-12.0 % Eosinophils (%) (Auto) 2.5 0.0-7.0 % Basophils (%) (Auto) 0.3 0.0-2.0 % Neutrophils # (Auto) 5.8 1.6-8.6 10 ^3/uL Lymphocytes # (Auto) 2.1 0.4-5.4 10 ^3/uL Monocytes # (Auto) 0.6 0-1.3 10 ^3/uL Eosinophils # (Auto) 0.2 0-0.8 10 ^3/uL Basophils # (Auto) 0 0-0.2 10 ^3/uL Nucleated Red Blood Cells 0.1 % Sodium Level 140 136-145 mmol/L Potassium Level 3.8 3.5-5.1 mmol/L Chloride Level 104 98-107 mmol/L Carbon Dioxide Level 27 20-31 mmol/L Anion Gap 9 5-15 Blood Urea Nitrogen 8 L 9-23 mg/dL Creatinine 0.75 0.550-1.02 mg/dL Glomerular Filtration Rate Calc 91 >90 mL/min BUN/Creatinine Ratio 10.7 10.0-20.0 Serum Glucose 164 H 74-106 mg/dL Calcium Level 9.0 8.7-10.4 mg/dL Total Bilirubin 0.6 0.2-1.0 mg/dL Aspartate Amino Transferase (AST) 15 13-40 U/L Alanine Aminotransferase (ALT) 20 7-40 U/L Alkaline Phosphatase 83 46-116 U/L Total Protein 6.9 5.7-8.2 g/dL Albumin 4.4 3.2-4.8 g/dL Prothrombin Time 10.8 9.3-11.8 sec Prothrombin Time INR 1.02 0.9-1.15 Activated Partial Thromboplast Time 27.6 24.5-34.5 SEC Hemoglobin A1c 8.5 H <5.7 % A1C Test 03/31/25 08:27 Range/Units Urine Color Light-yellow Yellow Urine Clarity Clear Clear Urine pH 5.5 5.0-9.0 Urine Specific [place] 1.009 1.001-1.035 Urine Protein Negative Negative Urine Ketones Negative Negative Urine Blood Negative Negative /uL Urine Nitrite Negative Negative Urine Bilirubin Negative Negative Urine Urobilinogen Normal Negative mg/dL Urine Leukocyte Esterase Negative Negative /uL Urine RBC <1 0 - 4 /hpf Urine Microscopic WBC < 1 0-5 /HPF Urine Squamous Epithelial Cells Few <5 /hpf Urine Bacteria None seen None Seen /hpf Urine Glucose 1+ H Normal mg/dL Assessment [id number] AFEBRILE VSS PAIN ABD NO NV NG IN PLACE MINIMAL DRAINAGE WBC WNL CT SCAN POSSIBLE CONTAINED JEJUNAL DIVERTICULUM PERFORATION KEEP NPO NG TO LCS IV ABX REPEAT LABS AND PT/PTT PROTONIX 40 MG IV BID DISCUSSED WITH NURSE ONGOING CARE AND CLOSE OBSERVATION Plan discussed with: Patient RAMY CHEN MD Apr 01, 2025 10:02
[2025-04-01] MEDS: HYDROmorphone HCL 2 MG/ML VL/or syr IV PRN (11:10)
--- NOTE | 2025-04-01 11:41 | DVHPN2 ---
Reviewed: Care Plan, H&P, Labs, Medications, Previous Orders, Radiology Changes from previous H/P or p: No Changes Eyes: No Pain, No Vision change, No Conjunctivae inflammation, No Eyelid inflammation, No Other, No Redness ENT: No Ear pain, No Ear discharge, No Nose pain, No Nose discharge, No Nose congestion, No Mouth pain, No Mouth swelling, No Throat pain, No Throat swelling, No Other Cardiovascular: No Chest Pain, No Palpitations, No Orthopnea, No Paroxysmal Noc. Dyspnea, No Edema, No Lt Headedness, No Other Respiratory: No Cough, No Dry, No Shortness of breath, No SOB with excertion, No Wheezing, No Hemoptysis, No Pleuritic Pain, No Sputum, No Other Gastrointestinal: Nausea; No Vomiting; Abdominal Pain; No Diarrhea, No Constipation, No Melena, No Hematochezia, No Other Genitourinary: No Dysuria, No Frequency, No Incontinence, No Hematuria, No Retention, No Other Musculoskeletal: No other, No neck pain, No shoulder pain, No arm pain, No back pain, No hand pain, No leg pain, No foot pain Skin: No Rash, No Lesions, No Jaundice, No Bruising, No Other Objective Vitals Vital Signs Date Time Temp Pulse Resp B/P (MAP) Pulse Ox O2 Delivery O2 Flow Rate FiO2 04/01/25 11:10 65 16 149/75 04/01/25 09:00 97.3 93 97.3 04/01/25 08:00 Room Air* 0 21 Intake/Output Intake and Output 04/01/25 07:00 Intake Total 1100 ml Balance 1100 ml Intake Oral 0 ml IV Total 1100 ml Medications Current Medications Medications Dose Ordered Sig/Melonie Route Start Time Stop Time Status Last Admin Dose Admin Ondansetron HCl 4 mg Q4HP PRN IV 03/31/25 12:00 04/01/25 11:21 4 MG Acetaminophen 650 mg Q6HP PRN PO 03/31/25 12:00 Diagnostic Test (Pha) 1 strip Q6HR 03/31/25 12:00 04/01/25 11:22 1 STRIP Insulin Human Regular Q6HR SC 03/31/25 12:00 03/31/25 18:57 2 UNITS Dextrose 50 ml UD PRN IV 03/31/25 12:00 Metronidazole 100 ml @ 100 mls/hr Q8HR IV 03/31/25 14:00 04/01/25 06:34 100 MLS/HR Ceftriaxone Sodium 50 ml @ 100 mls/hr DAILY@09 IV 04/01/25 09:00 04/01/25 09:34 100 MLS/HR Dimethicone 160 mg BID PO 03/31/25 22:00 Atorvastatin Calcium 40 mg HS PO 03/31/25 22:00 Losartan Potassium 100 mg DAILY PO 04/01/25 10:00 Patient Own Medication 1 cap TID PO 03/31/25 14:00 Pantoprazole Sodium 40 mg BID IV 03/31/25 22:00 04/01/25 09:34 40 MG Hydromorphone HCl 0.25 mg Q4HPRN PRN IV 04/01/25 10:00 04/01/25 11:10 0.25 MG Laboratory Results Laboratory Tests 04/01/25 06:02 Chemistry Test 04/01/25 06:02 Albumin 4.4 g/dL (3.2-4.8) Calcium Level 9.0 mg/dL (8.7-10.4) Total Protein 6.9 g/dL (5.7-8.2) Coagulation Test 03/31/25 21:30 Prothrombin Time 10.8 sec (9.3-11.8) Prothrombin Time INR 1.02 (0.9-1.15) Activated Partial Thromboplast Time 27.6 SEC (24.5-34.5) LFT Test 04/01/25 06:02 Alanine Aminotransferase (ALT) 20 U/L (7-40) Alkaline Phosphatase 83 U/L (46-116) Aspartate Amino Transferase (AST) 15 U/L (13-40) Total Bilirubin 0.6 mg/dL (0.2-1.0) Urinalysis Test 03/31/25 08:27 Urine Color Light-yellow (Yellow) Urine Clarity Clear (Clear) Urine pH 5.5 (5.0-9.0) Urine Specific [place] 1.009 (1.001-1.035) Urine Protein Negative (Negative) Urine Ketones Negative (Negative) Urine Blood Negative /uL (Negative) Urine Nitrite Negative (Negative) Urine Bilirubin Negative (Negative) Urine Urobilinogen Normal mg/dL (Negative) Urine Leukocyte Esterase Negative /uL (Negative) Urine RBC <1 /hpf (0 - 4) Urine Microscopic WBC < 1 /HPF (0-5) Urine Squamous Epithelial Cells Few /hpf (<5) Urine Bacteria None seen /hpf (None Seen) Urine Glucose 1+ mg/dL (Normal) H Labs and/or images reviewed: Labs reviewed by me, Image(s) reviewed by me Assessment/Plan Assessment/Plan Acute abdominal pain secondary to contained perforated jejunal diverticulitis: Consult by surgeon Dr. Briseida Nichole appreciated, continue Rocephin,Flagyl, keep NPO Hypertension Diabetes type 2 Hypercholesterolemia Asthma Obesity History of diverticulosis Time spent 65 minutes Patient is full code Advanced care planning time 20 minutes Plan discussed with: Patient Date of Service: Apr 01, 2025 Billing Provider: THEO CARLOS MD Common Visit Codes: [id number] CARE 30-74 MIN THEO CARLOS MD Apr 01, 2025 11:41
--- NOTE | 2025-04-01 14:17 | DVHINCON2 ---
DATE OF CONSULTATION: 04/01/2025 HISTORY OF PRESENT ILLNESS: This patient is 59-year-old, came in on 03/31/2025. I was consulted and I saw her on 04/01/2025. She is basically complaining of abdominal pain, slightly feeling better. No nausea or vomiting. No constipation or diarrhea. Based upon my initial impression, she was having abdominal pain with a suspected jejunal diverticulum with contained perforation as per the CAT scan, but she was recommended NG tube to low continuous suction and today her pain is slightly better. No nausea or vomiting. No constipation or diarrhea. She did have flatters. No hematemesis or melena. No bleeding per rectum. PAST MEDICAL HISTORY: Hypertension, diabetes and asthma. She has a history of diverticulosis. PAST SURGICAL HISTORY: and panniculectomy. PHYSICAL EXAMINATION: VITAL SIGNS: Afebrile with stable signs. HEENT: No evidence of pallor, cyanosis or jaundice. NECK: Supple and nontender, with no thyromegaly or lymphadenopathy. CHEST AND LUNGS: Clear. HEART: Within normal limits. ABDOMEN: Soft, tender in the upper abdomen. No rebound. EXTREMITIES: Extremity examination is unremarkable. NEUROLOGIC: She is intact. CLINICAL IMPRESSION: Jejunal diverticulitis with possibly contained perforations. There is no free air noted on the chest x-ray and white cell count is within normal limits, so my clinical impression is jejunal diverticulitis with possibility of contained perforation. PLAN: At this point, he needs conservative management. Keep n.p.o. with NG to low continue suction, intravenous antibiotics, and Protonix. GI evaluation as indicated at this point and consider emergent surgery based upon ongoing evaluation. MD PAOLA Caruso/DEE/WENDY TID: [id number] RECEIPT: [id number] cc: PERLA SAN
[2025-04-02] VITALS (7 sets, daily range): BP systolic 147–169; BP diastolic 70–95; PULSE 50–65; RESP 15–20; TEMP 98.2–98.8; O2SAT 96–98
--- NOTE | 2025-04-02 12:33 | DVHPN2 ---
Reviewed: Care Plan, H&P, Labs, Medications, Previous Orders, Radiology Changes from previous H/P or p: No Changes Eyes: No Pain, No Vision change, No Conjunctivae inflammation, No Eyelid inflammation, No Other, No Redness ENT: No Ear pain, No Ear discharge, No Nose pain, No Nose discharge, No Nose congestion, No Mouth pain, No Mouth swelling, No Throat pain, No Throat swelling, No Other Cardiovascular: No Chest Pain, No Palpitations, No Orthopnea, No Paroxysmal Noc. Dyspnea, No Edema, No Lt Headedness, No Other Respiratory: No Cough, No Dry, No Shortness of breath, No SOB with excertion, No Wheezing, No Hemoptysis, No Pleuritic Pain, No Sputum, No Other Gastrointestinal: Nausea; No Vomiting; Abdominal Pain; No Diarrhea, No Constipation, No Melena, No Hematochezia, No Other Genitourinary: No Dysuria, No Frequency, No Incontinence, No Hematuria, No Retention, No Other Musculoskeletal: No other, No neck pain, No shoulder pain, No arm pain, No back pain, No hand pain, No leg pain, No foot pain Skin: No Rash, No Lesions, No Jaundice, No Bruising, No Other Objective Vitals Vital Signs Date Time Temp Pulse Resp B/P (MAP) Pulse Ox O2 Delivery O2 Flow Rate FiO2 04/02/25 11:58 62 14 116/77 04/02/25 09:00 98.4 97 98.4 04/02/25 08:00 Room Air* 0 21 Intake/Output Intake and Output 04/02/25 07:00 Intake Total 395 ml Output Total 1150 ml Balance -755 ml Intake Oral 45 ml IV Total 350 ml Output Urine Total 1150 ml Medications Current Medications Medications Dose Ordered Sig/Melonie Route Start Time Stop Time Status Last Admin Dose Admin Ondansetron HCl 4 mg Q4HP PRN IV 03/31/25 12:00 04/02/25 08:25 4 MG Acetaminophen 650 mg Q6HP PRN PO 03/31/25 12:00 Diagnostic Test (Pha) 1 strip Q6HR 03/31/25 12:00 04/02/25 12:06 1 STRIP Insulin Human Regular Q6HR SC 03/31/25 12:00 03/31/25 18:57 2 UNITS Dextrose 50 ml UD PRN IV 03/31/25 12:00 Metronidazole 100 ml @ 100 mls/hr Q8HR IV 03/31/25 14:00 04/02/25 11:58 100 MLS/HR Ceftriaxone Sodium 50 ml @ 100 mls/hr DAILY@09 IV 04/01/25 09:00 04/02/25 08:25 100 MLS/HR Dimethicone 160 mg BID PO 03/31/25 22:00 Atorvastatin Calcium 40 mg HS PO 03/31/25 22:00 Losartan Potassium 100 mg DAILY PO 04/01/25 10:00 Patient Own Medication 1 cap TID PO 03/31/25 14:00 Pantoprazole Sodium 40 mg BID IV 03/31/25 22:00 04/02/25 08:25 40 MG Hydromorphone HCl 0.25 mg Q4HPRN PRN IV 04/01/25 10:00 04/02/25 11:58 0.25 MG Laboratory Results Laboratory Tests 04/01/25 06:02 Urinalysis Test 03/31/25 08:27 Urine Color Light-yellow (Yellow) Urine Clarity Clear (Clear) Urine pH 5.5 (5.0-9.0) Urine Specific [place] 1.009 (1.001-1.035) Urine Protein Negative (Negative) Urine Ketones Negative (Negative) Urine Blood Negative /uL (Negative) Urine Nitrite Negative (Negative) Urine Bilirubin Negative (Negative) Urine Urobilinogen Normal mg/dL (Negative) Urine Leukocyte Esterase Negative /uL (Negative) Urine RBC <1 /hpf (0 - 4) Urine Microscopic WBC < 1 /HPF (0-5) Urine Squamous Epithelial Cells Few /hpf (<5) Urine Bacteria None seen /hpf (None Seen) Urine Glucose 1+ mg/dL (Normal) H Labs and/or images reviewed: Labs reviewed by me, Image(s) reviewed by me Assessment/Plan Assessment/Plan Acute abdominal pain secondary to contained perforated jejunal diverticulitis: Consult by surgeon Dr. Briseida Nichole appreciated, continue Jcaksonepmarjorie,Amira, keep NPO Hypertension Diabetes type 2 Hypercholesterolemia Asthma Obesity History of diverticulosis Acute Dehydration LR 150 ml per hour Time spent 55 minutes Patient is full code Advanced care planning time 20 minutes Plan discussed with: Patient Date of Service: Apr 02, 2025 Billing Provider: HTEO CARLOS MD Common Visit Codes: [id number] INP/OBS CARE(HIGH) THEO CARLOS MD Apr 02, 2025 12:33
[2025-04-02] MEDS: LACTATED RINGER'S 1,000 ML IV SCH (13:50)
--- NOTE | 2025-04-02 22:13 | DVHPN2 ---
Progress Note Date Seen: Apr 02, 2025 Medical Necessity Reason Pt with a Central, PICC or Fol: No Objective vital signs Vital Sign Date Time Temp Pulse Resp B/P (MAP) Pulse Ox O2 Delivery O2 Flow Rate FiO2 04/02/25 21:18 80 20 159/91 04/02/25 21:00 98.6 98 98.6 04/02/25 08:00 Room Air* 0 21 Total Intake and Output 04/01/25 04/01/25 04/02/25 15:00 23:00 07:00 Intake Total 250 ml 100 ml 45 ml Output Total 500 ml 650 ml Balance 250 ml -400 ml -605 ml medications Current Medications Medications Dose Ordered Sig/Melonie Route Start Time Stop Time Status Last Admin Dose Admin Ondansetron HCl 4 mg Q4HP PRN IV 03/31/25 12:00 04/02/25 16:49 4 MG Acetaminophen 650 mg Q6HP PRN PO 03/31/25 12:00 Diagnostic Test (Pha) 1 strip Q6HR 03/31/25 12:00 04/02/25 18:12 1 STRIP Insulin Human Regular Q6HR SC 03/31/25 12:00 03/31/25 18:57 2 UNITS Dextrose 50 ml UD PRN IV 03/31/25 12:00 Metronidazole 100 ml @ 100 mls/hr Q8HR IV 03/31/25 14:00 04/02/25 11:58 100 MLS/HR Ceftriaxone Sodium 50 ml @ 100 mls/hr DAILY@09 IV 04/01/25 09:00 04/02/25 08:25 100 MLS/HR Dimethicone 160 mg BID PO 03/31/25 22:00 Atorvastatin Calcium 40 mg HS PO 03/31/25 22:00 Losartan Potassium 100 mg DAILY PO 04/01/25 10:00 Patient Own Medication 1 cap TID PO 03/31/25 14:00 Pantoprazole Sodium 40 mg BID IV 03/31/25 22:00 04/02/25 21:17 40 MG Hydromorphone HCl 0.25 mg Q4HPRN PRN IV 04/01/25 10:00 04/02/25 21:18 0.25 MG Lactated Ringer's 1,000 ml @ 150 mls/hr Q6H40M IV 04/02/25 12:45 04/02/25 13:50 150 MLS/HR laboratory and microbiology Laboratory Tests 04/01/25 06:02 Test 04/01/25 06:02 Range/Units Serum Glucose 164 H 74-106 mg/dL Problem List/Assessment/Plan Problem List/Assessment/Plan AEBRILE VSS ABD SOFT LESS TENDER NO BM NG IN PLACE CT SCAN ABD PELVIS WITH PO CONTRAST AM Plan discussed with: Patient My Orders My Orders Orders - RAMY CHEN MD Procedure Category Date Status Time Ct Ab Pel Wo Con-No CT 04/02/25 Taken Oral Or Iv 18:58 RAMY CHEN MD Apr 02, 2025 22:12
[2025-04-03] VITALS (8 sets, daily range): BP systolic 122–156; BP diastolic 78–94; PULSE 52–64; RESP 18–20; TEMP 97.7–98.7; O2SAT 95–99
--- NOTE | 2025-04-03 00:59 | DVH ---
Exam: CT CT AB PEL WO CON-NO ORAL OR IV History: perforation Comparison Study: CT CT AB PEL WO CON-NO ORAL OR IV on DOS: 03/31/25, CT CT AB PEL WO CON-NO ORAL OR IV on DOS: 02/04/23 Technique: Multidetector spiral CT of the abdomen was performed from lung bases to pubic symphysis. I maging was performed without IV contrast. Axial, coronal and sagittal multiplanar reformats were obta ined from the axial data set by the technologist. Radiation Dose : 1. Abdomen/Pelvis: CTDIvol 24.51 mGy, DLP 1360.7 mGy*cm. Findings: Evaluation of solid organs is limited due to lack of intravenous contrast use. Support devices: Enteric tube side port at the gastroesophageal junction and tip within the stomach. Lung Bases: Unremarkable. Liver: Diffuse hypoattenuation. Gallbladder and Biliary Tree: Unremarkable Pancreas: Moderate atrophy. Spleen: Multiple splenules. Adrenal Glands: Unremarkable Kidneys/Ureters: No obstruction. 2 mm stone in the right collecting system. Bladder: Grossly unremarkable for degree of distention. Pelvic Organs: Unremarkable. Bowel: The distal esophagus, stomach, and duodenum are unremarkable. Focal inflammation and extra lum inal gas of a small bowel loop in the left upper quadrant (axial image 46/ 101) without obstruction. The remaining small bowel is unremarkable. No evidence of appendicitis. Distal colonic diverticulo sis without diverticulitis. Vasculature: Unremarkable. Lymphadenopathy: No obvious adenopathy. Peritoneum: No ascites or significant pneumoperitoneum; small amount of extraluminal small bowel-gas as above. Abdominal Wall: Bilateral groin injection granulomas. Musculoskeletal: No acute osseous finding. Degenerative change of the spine. IMPRESSION: 1. Focal inflammation of the small bowel loop in the left upper quadrant with localized micro perfora tion. No bowel obstruction. 2. Enteric tube slightly superiorly positioned, recommend 5-10 cm advancement. 3. Nonobstructing right nephrolith. Radiation optimization: All CT scans at this facility use at least one of these dose optimization chele hniques: automated exposure control mA and/or kV adjustment per patient size (includes targeted exam s where dose is matched to clinical indication) or iterative reconstruction.
--- NOTE | 2025-04-03 12:13 | DVHPN2 ---
Reviewed: Care Plan, H&P, Labs, Medications, Previous Orders, Radiology Changes from previous H/P or p: No Changes Eyes: No Pain, No Vision change, No Conjunctivae inflammation, No Eyelid inflammation, No Other, No Redness ENT: No Ear pain, No Ear discharge, No Nose pain, No Nose discharge, No Nose congestion, No Mouth pain, No Mouth swelling, No Throat pain, No Throat swelling, No Other Cardiovascular: No Chest Pain, No Palpitations, No Orthopnea, No Paroxysmal Noc. Dyspnea, No Edema, No Lt Headedness, No Other Respiratory: No Cough, No Dry, No Shortness of breath, No SOB with excertion, No Wheezing, No Hemoptysis, No Pleuritic Pain, No Sputum, No Other Gastrointestinal: Nausea; No Vomiting; Abdominal Pain; No Diarrhea, No Constipation, No Melena, No Hematochezia, No Other Genitourinary: No Dysuria, No Frequency, No Incontinence, No Hematuria, No Retention, No Other Musculoskeletal: No other, No neck pain, No shoulder pain, No arm pain, No back pain, No hand pain, No leg pain, No foot pain Skin: No Rash, No Lesions, No Jaundice, No Bruising, No Other Objective Vitals Vital Signs Date Time Temp Pulse Resp B/P (MAP) Pulse Ox O2 Delivery O2 Flow Rate FiO2 04/03/25 09:46 144/78 04/03/25 09:03 97.7 55 18 97 97.7 04/03/25 08:00 Room Air* 0 21 Intake/Output Intake and Output 04/03/25 07:00 Intake Total 350 ml Balance 350 ml Intake Oral 0 ml IV Total 350 ml # Voids 8 Medications Current Medications Medications Dose Ordered Sig/Melonie Route Start Time Stop Time Status Last Admin Dose Admin Ondansetron HCl 4 mg Q4HP PRN IV 03/31/25 12:00 04/03/25 02:03 4 MG Acetaminophen 650 mg Q6HP PRN PO 03/31/25 12:00 Diagnostic Test (Pha) 1 strip Q6HR 03/31/25 12:00 04/03/25 06:05 1 STRIP Insulin Human Regular Q6HR SC 03/31/25 12:00 03/31/25 18:57 2 UNITS Dextrose 50 ml UD PRN IV 03/31/25 12:00 Metronidazole 100 ml @ 100 mls/hr Q8HR IV 03/31/25 14:00 04/03/25 05:50 100 MLS/HR Ceftriaxone Sodium 50 ml @ 100 mls/hr DAILY@09 IV 04/01/25 09:00 04/03/25 09:46 100 MLS/HR Dimethicone 160 mg BID PO 03/31/25 22:00 Atorvastatin Calcium 40 mg HS PO 03/31/25 22:00 Losartan Potassium 100 mg DAILY PO 04/01/25 10:00 Patient Own Medication 1 cap TID PO 03/31/25 14:00 Pantoprazole Sodium 40 mg BID IV 03/31/25 22:00 04/03/25 09:46 40 MG Hydromorphone HCl 0.25 mg Q4HPRN PRN IV 04/01/25 10:00 04/03/25 06:12 0.25 MG Lactated Ringer's 1,000 ml @ 150 mls/hr Q6H40M IV 04/02/25 12:45 04/03/25 02:09 150 MLS/HR Laboratory Results Laboratory Tests 04/01/25 06:02 Urinalysis Test 03/31/25 08:27 Urine Color Light-yellow (Yellow) Urine Clarity Clear (Clear) Urine pH 5.5 (5.0-9.0) Urine Specific [place] 1.009 (1.001-1.035) Urine Protein Negative (Negative) Urine Ketones Negative (Negative) Urine Blood Negative /uL (Negative) Urine Nitrite Negative (Negative) Urine Bilirubin Negative (Negative) Urine Urobilinogen Normal mg/dL (Negative) Urine Leukocyte Esterase Negative /uL (Negative) Urine RBC <1 /hpf (0 - 4) Urine Microscopic WBC < 1 /HPF (0-5) Urine Squamous Epithelial Cells Few /hpf (<5) Urine Bacteria None seen /hpf (None Seen) Urine Glucose 1+ mg/dL (Normal) H Labs and/or images reviewed: Labs reviewed by me, Image(s) reviewed by me Assessment/Plan Assessment/Plan Acute abdominal pain secondary to contained perforated jejunal diverticulitis: Consult by surgeon Dr. Briseida Nichole appreciated, continue Rocephin,Flagyl, keep NPO, repeat CT abdomen pelvis without contrast show micro perforation, no bowel obstruction Hypertension Diabetes type 2 Hypercholesterolemia Asthma Obesity History of diverticulosis Constant right-sided headache, CT head ESR Acute Dehydration LR 150 ml per hour Time spent 55 minutes Patient is full code Advanced care planning time 20 minutes Plan discussed with: Patient My Orders Orders - THEO CARLOS MD Procedure Category Date Status Time Lactated Ringer's PHA 04/02/25 In Process 12:45 Date of Service: Apr 03, 2025 Billing Provider: THEO CARLOS MD Common Visit Codes: [id number] INP/OBS CARE(HIGH) THEO CARLOS MD Apr 03, 2025 12:13
--- NOTE | 2025-04-03 13:05 | DVH ---
Procedure: CT HEAD WITHOUT CONTRAST Study Date and Requested Time: 04/03/2025 12:24 PM History: Right-sided headache Comparison: None Dose: CTDI: 56.24 mGy DLP: 1.71 mGycm Technique: Multiplanar images obtained through the brain without intravenous contrast. Findings: Normal brain volume and formation. Minimal chronic small vessel ischemic changes. No hemorrhages, masses, mass effect, midline shift, herniation or cytotoxic edema following a large v ascular territory. No intra-axial or extra-axial fluid collections. No evidence of hydrocephalus. The basal cisterns are patent. The pituitary gland, sella and parasellar regions are unremarkable. The cerebellar tonsils are in nor mal position. The cerebellum is unremarkable. The orbits and globes are unremarkable. The paranasal sinuses and right mastoid are clear. Decreased pneumatization of the left mastoid. Polyp within bilateral olfactory recesses and left nasal cavity. There are no worrisome calvarial lesions. Impression: No evidence of acute intracranial abnormality. If symptoms persist, consider MRI for further evaluati on. Polyps within the bilateral olfactory recesses and left nasal cavity.
[2025-04-03] MEDS: ACETAMINOPHEN 325 MG TAB PO PRN (16:56)
[2025-04-04] VITALS (7 sets, daily range): BP systolic 131–158; BP diastolic 70–90; PULSE 52–60; RESP 16–20; TEMP 98–98.7; O2SAT 95–98
--- NOTE | 2025-04-04 13:45 | DVHPN2 ---
Reviewed: Care Plan, H&P, Labs, Medications, Previous Orders, Radiology Changes from previous H/P or p: No Changes Eyes: No Pain, No Vision change, No Conjunctivae inflammation, No Eyelid inflammation, No Other, No Redness ENT: No Ear pain, No Ear discharge, No Nose pain, No Nose discharge, No Nose congestion, No Mouth pain, No Mouth swelling, No Throat pain, No Throat swelling, No Other Cardiovascular: No Chest Pain, No Palpitations, No Orthopnea, No Paroxysmal Noc. Dyspnea, No Edema, No Lt Headedness, No Other Respiratory: No Cough, No Dry, No Shortness of breath, No SOB with excertion, No Wheezing, No Hemoptysis, No Pleuritic Pain, No Sputum, No Other Gastrointestinal: Nausea; No Vomiting; Abdominal Pain; No Diarrhea, No Constipation, No Melena, No Hematochezia, No Other Genitourinary: No Dysuria, No Frequency, No Incontinence, No Hematuria, No Retention, No Other Musculoskeletal: No other, No neck pain, No shoulder pain, No arm pain, No back pain, No hand pain, No leg pain, No foot pain Skin: No Rash, No Lesions, No Jaundice, No Bruising, No Other Objective Vitals Vital Signs Date Time Temp Pulse Resp B/P (MAP) Pulse Ox O2 Delivery O2 Flow Rate FiO2 04/04/25 09:47 157/79 04/04/25 09:00 98.0 52 16 95 98.0 04/04/25 08:00 Room Air* 0 21 Intake/Output Intake and Output 04/04/25 07:00 Intake Total 1700 ml Balance 1700 ml Intake Oral 450 ml IV Total 1250 ml # Voids 12 Medications Current Medications Medications Dose Ordered Sig/Melonie Route Start Time Stop Time Status Last Admin Dose Admin Ondansetron HCl 4 mg Q4HP PRN IV 03/31/25 12:00 04/04/25 10:56 4 MG Acetaminophen 650 mg Q6HP PRN PO 03/31/25 12:00 04/04/25 09:56 650 MG Diagnostic Test (Pha) 1 strip Q6HR 03/31/25 12:00 04/04/25 12:09 1 STRIP Insulin Human Regular Q6HR SC 03/31/25 12:00 04/04/25 12:16 3 UNITS Dextrose 50 ml UD PRN IV 03/31/25 12:00 Metronidazole 100 ml @ 100 mls/hr Q8HR IV 03/31/25 14:00 04/04/25 06:20 100 MLS/HR Ceftriaxone Sodium 50 ml @ 100 mls/hr DAILY@09 IV 04/01/25 09:00 04/04/25 09:46 100 MLS/HR Dimethicone 160 mg BID PO 03/31/25 22:00 04/04/25 09:47 160 MG Atorvastatin Calcium 40 mg HS PO 03/31/25 22:00 Losartan Potassium 100 mg DAILY PO 04/01/25 10:00 04/04/25 09:47 100 MG Patient Own Medication 1 cap TID PO 03/31/25 14:00 Pantoprazole Sodium 40 mg BID IV 03/31/25 22:00 04/04/25 09:46 40 MG Hydromorphone HCl 0.25 mg Q4HPRN PRN IV 04/01/25 10:00 04/03/25 06:12 0.25 MG Lactated Ringer's 1,000 ml @ 150 mls/hr Q6H40M IV 04/02/25 12:45 04/04/25 12:09 150 MLS/HR Laboratory Results Laboratory Tests 04/01/25 06:02 Urinalysis Test 03/31/25 08:27 Urine Color Light-yellow (Yellow) Urine Clarity Clear (Clear) Urine pH 5.5 (5.0-9.0) Urine Specific [place] 1.009 (1.001-1.035) Urine Protein Negative (Negative) Urine Ketones Negative (Negative) Urine Blood Negative /uL (Negative) Urine Nitrite Negative (Negative) Urine Bilirubin Negative (Negative) Urine Urobilinogen Normal mg/dL (Negative) Urine Leukocyte Esterase Negative /uL (Negative) Urine RBC <1 /hpf (0 - 4) Urine Microscopic WBC < 1 /HPF (0-5) Urine Squamous Epithelial Cells Few /hpf (<5) Urine Bacteria None seen /hpf (None Seen) Urine Glucose 1+ mg/dL (Normal) H Labs and/or images reviewed: Labs reviewed by me, Image(s) reviewed by me Assessment/Plan Assessment/Plan Acute abdominal pain secondary to contained perforated jejunal diverticulitis: Consult by surgeon Dr. Briseida Nichole appreciated, continue Rocephin,Flagyl, keep NPO, repeat CT abdomen pelvis without contrast show micro perforation, no bowel obstruction Hypertension Diabetes type 2 Hypercholesterolemia Asthma Obesity History of diverticulosis Constant right-sided headache, CT head negative ESR slightly high 34 Acute Dehydration LR 150 ml per hour Time spent 55 minutes Patient is full code Advanced care planning time 20 minutes Plan discussed with: Patient Date of Service: Apr 04, 2025 Billing Provider: THEO CARLOS MD Common Visit Codes: [id number] INP/OBS CARE(HIGH) THEO CARLOS MD Apr 04, 2025 13:45
--- NOTE | 2025-04-04 16:19 | DVHPN2 ---
Progress Note Date Seen: Apr 04, 2025 Medical Necessity Reason Pt with a Central, PICC or Fol: No Objective vital signs Vital Sign Date Time Temp Pulse Resp B/P (MAP) Pulse Ox O2 Delivery O2 Flow Rate FiO2 04/04/25 09:47 157/79 04/04/25 09:00 98.0 52 16 95 98.0 04/04/25 08:00 Room Air* 0 21 Total Intake and Output 04/03/25 04/03/25 04/04/25 15:00 23:00 07:00 Intake Total 150 ml 1000 ml 550 ml Balance 150 ml 1000 ml 550 ml medications Current Medications Medications Dose Ordered Sig/Melonie Route Start Time Stop Time Status Last Admin Dose Admin Ondansetron HCl 4 mg Q4HP PRN IV 03/31/25 12:00 04/04/25 10:56 4 MG Acetaminophen 650 mg Q6HP PRN PO 03/31/25 12:00 04/04/25 09:56 650 MG Diagnostic Test (Pha) 1 strip Q6HR 03/31/25 12:00 04/04/25 12:09 1 STRIP Insulin Human Regular Q6HR SC 03/31/25 12:00 04/04/25 12:16 3 UNITS Dextrose 50 ml UD PRN IV 03/31/25 12:00 Metronidazole 100 ml @ 100 mls/hr Q8HR IV 03/31/25 14:00 04/04/25 14:37 100 MLS/HR Ceftriaxone Sodium 50 ml @ 100 mls/hr DAILY@09 IV 04/01/25 09:00 04/04/25 09:46 100 MLS/HR Dimethicone 160 mg BID PO 03/31/25 22:00 04/04/25 09:47 160 MG Atorvastatin Calcium 40 mg HS PO 03/31/25 22:00 Losartan Potassium 100 mg DAILY PO 04/01/25 10:00 04/04/25 09:47 100 MG Patient Own Medication 1 cap TID PO 03/31/25 14:00 Pantoprazole Sodium 40 mg BID IV 03/31/25 22:00 04/04/25 09:46 40 MG Lactated Ringer's 1,000 ml @ 150 mls/hr Q6H40M IV 04/02/25 12:45 04/04/25 12:09 150 MLS/HR Acetaminophen/ Hydrocodone Bitart 1 tab Q6HPRN PRN PO 04/04/25 13:45 laboratory and microbiology Laboratory Tests 04/01/25 06:02 Test 04/01/25 06:02 Range/Units Serum Glucose 164 H 74-106 mg/dL Problem List/Assessment/Plan Problem List/Assessment/Plan AEBRILE VSS ABD SOFT NON TENDER BM + HERBERTH DIET DC NG CONTINUE CLOSE OBSERVATION Plan discussed with: Patient My Orders My Orders Orders - RAMY CHEN MD Procedure Category Date Status Time Clear Liq Diet DIET 04/03/25 Transmitted Dinner RAMY CHEN MD Apr 04, 2025 16:19
[2025-04-05] VITALS (7 sets, daily range): BP systolic 126–154; BP diastolic 73–85; PULSE 54–69; RESP 17–18; TEMP 97.8–99.3; O2SAT 96–99
[2025-04-05] MEDS: HYDROcodone-ACET 5/325MG TAB PO PRN (05:12)
--- NOTE | 2025-04-05 12:35 | DVHPN2 ---
Reviewed: Care Plan, H&P, Labs, Medications, Previous Orders, Radiology Changes from previous H/P or p: No Changes Eyes: No Pain, No Vision change, No Conjunctivae inflammation, No Eyelid inflammation, No Other, No Redness ENT: No Ear pain, No Ear discharge, No Nose pain, No Nose discharge, No Nose congestion, No Mouth pain, No Mouth swelling, No Throat pain, No Throat swelling, No Other Cardiovascular: No Chest Pain, No Palpitations, No Orthopnea, No Paroxysmal Noc. Dyspnea, No Edema, No Lt Headedness, No Other Respiratory: No Cough, No Dry, No Shortness of breath, No SOB with excertion, No Wheezing, No Hemoptysis, No Pleuritic Pain, No Sputum, No Other Gastrointestinal: Nausea; No Vomiting; Abdominal Pain; No Diarrhea, No Constipation, No Melena, No Hematochezia, No Other Genitourinary: No Dysuria, No Frequency, No Incontinence, No Hematuria, No Retention, No Other Musculoskeletal: No other, No neck pain, No shoulder pain, No arm pain, No back pain, No hand pain, No leg pain, No foot pain Skin: No Rash, No Lesions, No Jaundice, No Bruising, No Other Objective Vitals Vital Signs Date Time Temp Pulse Resp B/P (MAP) Pulse Ox O2 Delivery O2 Flow Rate FiO2 04/05/25 10:19 154/85 04/05/25 09:00 98.4 64 17 96 98.4 04/04/25 20:00 Room Air* 0 21 Intake/Output Intake and Output 04/05/25 07:00 Intake Total 3500 ml Balance 3500 ml Intake Oral 1100 ml IV Total 2400 ml # Voids 6 # Bowel Movements 5 Medications Current Medications Medications Dose Ordered Sig/Melonie Route Start Time Stop Time Status Last Admin Dose Admin Ondansetron HCl 4 mg Q4HP PRN IV 03/31/25 12:00 04/04/25 10:56 4 MG Acetaminophen 650 mg Q6HP PRN PO 03/31/25 12:00 04/04/25 09:56 650 MG Diagnostic Test (Pha) 1 strip Q6HR 03/31/25 12:00 04/05/25 11:53 1 STRIP Insulin Human Regular Q6HR SC 03/31/25 12:00 04/05/25 11:54 3 UNITS Dextrose 50 ml UD PRN IV 03/31/25 12:00 Metronidazole 100 ml @ 100 mls/hr Q8HR IV 03/31/25 14:00 04/05/25 06:14 100 MLS/HR Ceftriaxone Sodium 50 ml @ 100 mls/hr DAILY@09 IV 04/01/25 09:00 04/05/25 10:19 100 MLS/HR Dimethicone 160 mg BID PO 03/31/25 22:00 04/05/25 10:19 160 MG Atorvastatin Calcium 40 mg HS PO 03/31/25 22:00 04/04/25 21:25 40 MG Losartan Potassium 100 mg DAILY PO 04/01/25 10:00 04/05/25 10:19 100 MG Patient Own Medication 1 cap TID PO 03/31/25 14:00 Pantoprazole Sodium 40 mg BID IV 03/31/25 22:00 04/05/25 10:19 40 MG Lactated Ringer's 1,000 ml @ 150 mls/hr Q6H40M IV 04/02/25 12:45 04/04/25 19:59 150 MLS/HR Acetaminophen/ Hydrocodone Bitart 1 tab Q6HPRN PRN PO 04/04/25 13:45 04/05/25 05:12 1 TAB Laboratory Results Laboratory Tests 04/01/25 06:02 Urinalysis Test 03/31/25 08:27 Urine Color Light-yellow (Yellow) Urine Clarity Clear (Clear) Urine pH 5.5 (5.0-9.0) Urine Specific [place] 1.009 (1.001-1.035) Urine Protein Negative (Negative) Urine Ketones Negative (Negative) Urine Blood Negative /uL (Negative) Urine Nitrite Negative (Negative) Urine Bilirubin Negative (Negative) Urine Urobilinogen Normal mg/dL (Negative) Urine Leukocyte Esterase Negative /uL (Negative) Urine RBC <1 /hpf (0 - 4) Urine Microscopic WBC < 1 /HPF (0-5) Urine Squamous Epithelial Cells Few /hpf (<5) Urine Bacteria None seen /hpf (None Seen) Urine Glucose 1+ mg/dL (Normal) H Labs and/or images reviewed: Labs reviewed by me, Image(s) reviewed by me Assessment/Plan Assessment/Plan Acute abdominal pain secondary to contained perforated jejunal diverticulitis: Consult by surgeon Dr. Briseida Nichole appreciated, continue Rocephin,Flagyl, NG tube removed tolerating liquid diet, advance diet as tolerated Hypertension Diabetes type 2 Hypercholesterolemia Asthma Obesity History of diverticulosis Constant right-sided headache, CT head negative ESR slightly high 34 Acute Dehydration LR 150 ml per hour Time spent 55 minutes Patient is full code Advanced care planning time 20 minutes Will DC tomorrow Plan discussed with: Patient My Orders Orders - THEO CARLOS MD Procedure Category Date Status Time Hydrocodone-Acet PHA 04/04/25 In Process 5/325mg Tab ([place] 13:45 Date of Service: Apr 05, 2025 Billing Provider: THEO CARLOS MD Common Visit Codes: [id number] INP/OBS CARE(HIGH) THEO CARLOS MD Apr 05, 2025 12:35
[2025-04-06] VITALS (7 sets, daily range): BP systolic 132–158; BP diastolic 75–97; PULSE 54–71; RESP 17–18; TEMP 97.6–98.7; O2SAT 92–99
--- NOTE | 2025-04-06 11:45 | DVHPN2 ---
Reviewed: Care Plan, H&P, Labs, Medications, Previous Orders, Radiology Changes from previous H/P or p: No Changes Eyes: No Pain, No Vision change, No Conjunctivae inflammation, No Eyelid inflammation, No Other, No Redness ENT: No Ear pain, No Ear discharge, No Nose pain, No Nose discharge, No Nose congestion, No Mouth pain, No Mouth swelling, No Throat pain, No Throat swelling, No Other Cardiovascular: No Chest Pain, No Palpitations, No Orthopnea, No Paroxysmal Noc. Dyspnea, No Edema, No Lt Headedness, No Other Respiratory: No Cough, No Dry, No Shortness of breath, No SOB with excertion, No Wheezing, No Hemoptysis, No Pleuritic Pain, No Sputum, No Other Gastrointestinal: Nausea; No Vomiting; Abdominal Pain; No Diarrhea, No Constipation, No Melena, No Hematochezia, No Other Genitourinary: No Dysuria, No Frequency, No Incontinence, No Hematuria, No Retention, No Other Musculoskeletal: No other, No neck pain, No shoulder pain, No arm pain, No back pain, No hand pain, No leg pain, No foot pain Skin: No Rash, No Lesions, No Jaundice, No Bruising, No Other Objective Vitals Vital Signs Date Time Temp Pulse Resp B/P (MAP) Pulse Ox O2 Delivery O2 Flow Rate FiO2 04/06/25 09:24 134/97 04/06/25 09:00 97.6 71 17 98 97.6 04/05/25 20:00 Room Air* 0 21 Intake/Output Intake and Output 04/06/25 07:00 Intake Total 3625 ml Output Total 1100 ml Balance 2525 ml Intake Oral 3275 ml IV Total 350 ml Output Urine Total 1100 ml # Voids 10 # Bowel Movements 2 Medications Current Medications Medications Dose Ordered Sig/Melonie Route Start Time Stop Time Status Last Admin Dose Admin Ondansetron HCl 4 mg Q4HP PRN IV 03/31/25 12:00 04/04/25 10:56 4 MG Acetaminophen 650 mg Q6HP PRN PO 03/31/25 12:00 04/04/25 09:56 650 MG Diagnostic Test (Pha) 1 strip Q6HR 03/31/25 12:00 04/06/25 06:28 1 STRIP Insulin Human Regular Q6HR SC 03/31/25 12:00 04/06/25 06:30 2 UNITS Dextrose 50 ml UD PRN IV 03/31/25 12:00 Metronidazole 100 ml @ 100 mls/hr Q8HR IV 03/31/25 14:00 04/06/25 06:28 100 MLS/HR Ceftriaxone Sodium 50 ml @ 100 mls/hr DAILY@09 IV 04/01/25 09:00 04/06/25 09:26 100 MLS/HR Dimethicone 160 mg BID PO 03/31/25 22:00 04/06/25 09:24 160 MG Atorvastatin Calcium 40 mg HS PO 03/31/25 22:00 04/05/25 22:43 40 MG Losartan Potassium 100 mg DAILY PO 04/01/25 10:00 04/06/25 09:24 100 MG Patient Own Medication 1 cap TID PO 03/31/25 14:00 Pantoprazole Sodium 40 mg BID IV 03/31/25 22:00 04/06/25 09:26 40 MG Acetaminophen/ Hydrocodone Bitart 1 tab Q6HPRN PRN PO 04/04/25 13:45 04/05/25 05:12 1 TAB Laboratory Results Laboratory Tests 04/01/25 06:02 Urinalysis Test 03/31/25 08:27 Urine Color Light-yellow (Yellow) Urine Clarity Clear (Clear) Urine pH 5.5 (5.0-9.0) Urine Specific [place] 1.009 (1.001-1.035) Urine Protein Negative (Negative) Urine Ketones Negative (Negative) Urine Blood Negative /uL (Negative) Urine Nitrite Negative (Negative) Urine Bilirubin Negative (Negative) Urine Urobilinogen Normal mg/dL (Negative) Urine Leukocyte Esterase Negative /uL (Negative) Urine RBC <1 /hpf (0 - 4) Urine Microscopic WBC < 1 /HPF (0-5) Urine Squamous Epithelial Cells Few /hpf (<5) Urine Bacteria None seen /hpf (None Seen) Urine Glucose 1+ mg/dL (Normal) H Labs and/or images reviewed: Labs reviewed by me, Image(s) reviewed by me Assessment/Plan Assessment/Plan Acute abdominal pain secondary to contained perforated jejunal diverticulitis: Consult by surgeon Dr. Briseida Nichole appreciated, continue Rocephin,Flagyl, NG tube removed tolerating liquid diet, advance diet as tolerated Hypertension Diabetes type 2 Hypercholesterolemia Asthma Obesity History of diverticulosis Constant right-sided headache, CT head negative ESR slightly high 34 Acute Dehydration LR 150 ml per hour Time spent 55 minutes Patient is full code Advanced care planning time 20 minutes Will DC tomorrow after clearance by surgeon Dr. Briseida Nichole Plan discussed with: Patient My Orders Orders - THEO CARLOS MD Procedure Category Date Status Time Soft Diet DIET 04/05/25 Transmitted Dinner Date of Service: Apr 06, 2025 Billing Provider: THEO CARLOS MD Common Visit Codes: [id number] INP/OBS CARE(HIGH) THEO CARLOS MD Apr 06, 2025 11:45
[2025-04-06] MEDS ORDERED: DOCUSATE SOD 100 MG CAP PO PRN (19:30)
--- NOTE | 2025-04-06 20:09 | DVHPN2 ---
Progress Note Date Seen: Apr 06, 2025 Medical Necessity Reason Pt with a Central, PICC or Fol: No Objective vital signs Vital Sign Date Time Temp Pulse Resp B/P (MAP) Pulse Ox O2 Delivery O2 Flow Rate FiO2 04/06/25 17:00 97.9 68 18 156/78 (104) 99 97.9 04/06/25 08:00 Room Air* 0 21 Total Intake and Output 04/05/25 04/05/25 04/06/25 15:00 23:00 07:00 Intake Total 250 ml 2525 ml 850 ml Output Total 1100 ml Balance 250 ml 2525 ml -250 ml medications Current Medications Medications Dose Ordered Sig/Melonie Route Start Time Stop Time Status Last Admin Dose Admin Ondansetron HCl 4 mg Q4HP PRN IV 03/31/25 12:00 04/04/25 10:56 4 MG Acetaminophen 650 mg Q6HP PRN PO 03/31/25 12:00 04/04/25 09:56 650 MG Diagnostic Test (Pha) 1 strip Q6HR 03/31/25 12:00 04/06/25 18:26 1 STRIP Insulin Human Regular Q6HR SC 03/31/25 12:00 04/06/25 18:26 3 UNITS Dextrose 50 ml UD PRN IV 03/31/25 12:00 Metronidazole 100 ml @ 100 mls/hr Q8HR IV 03/31/25 14:00 04/06/25 14:06 100 MLS/HR Ceftriaxone Sodium 50 ml @ 100 mls/hr DAILY@09 IV 04/01/25 09:00 04/06/25 09:26 100 MLS/HR Dimethicone 160 mg BID PO 03/31/25 22:00 04/06/25 09:24 160 MG Atorvastatin Calcium 40 mg HS PO 03/31/25 22:00 04/05/25 22:43 40 MG Losartan Potassium 100 mg DAILY PO 04/01/25 10:00 04/06/25 09:24 100 MG Patient Own Medication 1 cap TID PO 03/31/25 14:00 Pantoprazole Sodium 40 mg BID IV 03/31/25 22:00 04/06/25 09:26 40 MG Acetaminophen/ Hydrocodone Bitart 1 tab Q6HPRN PRN PO 04/04/25 13:45 04/05/25 05:12 1 TAB Docusate Sodium 100 mg BIDPRN PRN PO 04/06/25 19:30 UNV laboratory and microbiology Laboratory Tests 04/01/25 06:02 Test 04/01/25 06:02 Range/Units Serum Glucose 164 H 74-106 mg/dL Problem List/Assessment/Plan Problem List/Assessment/Plan AEBRILE VSS ABD SOFT NON TENDER BM + HERBERTH DIET CLEARED FOR DISCHARGE Plan discussed with: Patient My Orders My Orders Orders - RAMY CHEN MD Procedure Category Date Status Time Consistent DIET 04/07/25 Transmitted Carb(Ccho)Diabetes Breakfast Dietary Evaluation Review Comments: Pt meets criteria for Severe Protein-Calorie Malnutrition in the setting of acute illness based on PO intake <50% EER x 6 days and severe wt loss 6.4kg/6% in 5 days Nutrition recommenadtion 1) Ensure Clear 240 ml TID 2) Consider TPN supplementation 3) Advance to [facility] 60gm + cardiac soft diet as medically feasible 4) Monitor PO intake, lab values, weight trend, and I/O Expected Outcomes/Goals: Intake to meet at least 75% estimated needs GI symptoms to improve follow up 2-3 days Food and Nutrition Intake (Sev: <50% est energy req 5days Interpretation of weight loss: >2% in 1 week Protein Calorie Malnutrition: Severe Is there a minimum of two crit: Yes RAMY CHEN MD Apr 06, 2025 20:09
[2025-04-07 01:00] VITALS: BP 155/75; PULSE 52; RESP 18; TEMP 97.9; O2SAT 100
[2025-04-07 05:00] VITALS: BP 127/31; PULSE 52; RESP 18; TEMP 98.1; O2SAT 95
[2025-04-07 08:00] VITALS: PULSE 51; RESP 19; O2SAT 98
[2025-04-07 09:00] VITALS: BP 161/66; PULSE 51; RESP 19; TEMP 97.6; O2SAT 98
[2025-04-07] MEDS ORDERED: PANT40T PO (10:44)
[2025-04-07] MEDS ORDERED: SIME80CH49 PO (10:44)
[2025-04-07] MEDS ORDERED: LEVO500T91 PO (10:44)
[2025-04-07] MEDS ORDERED: METR-344 PO (10:44)
--- NOTE | 2025-04-07 10:47 | DVHPN2 ---
Reviewed: Care Plan, H&P, Labs, Medications, Previous Orders, Radiology Changes from previous H/P or p: No Changes Eyes: No Pain, No Vision change, No Conjunctivae inflammation, No Eyelid inflammation, No Other, No Redness ENT: No Ear pain, No Ear discharge, No Nose pain, No Nose discharge, No Nose congestion, No Mouth pain, No Mouth swelling, No Throat pain, No Throat swelling, No Other Cardiovascular: No Chest Pain, No Palpitations, No Orthopnea, No Paroxysmal Noc. Dyspnea, No Edema, No Lt Headedness, No Other Respiratory: No Cough, No Dry, No Shortness of breath, No SOB with excertion, No Wheezing, No Hemoptysis, No Pleuritic Pain, No Sputum, No Other Gastrointestinal: Nausea; No Vomiting; Abdominal Pain; No Diarrhea, No Constipation, No Melena, No Hematochezia, No Other Genitourinary: No Dysuria, No Frequency, No Incontinence, No Hematuria, No Retention, No Other Musculoskeletal: No other, No neck pain, No shoulder pain, No arm pain, No back pain, No hand pain, No leg pain, No foot pain Skin: No Rash, No Lesions, No Jaundice, No Bruising, No Other Objective Vitals Vital Signs Date Time Temp Pulse Resp B/P (MAP) Pulse Ox O2 Delivery O2 Flow Rate FiO2 04/07/25 09:00 97.6 51 19 161/66 (97) 98 97.6 04/06/25 20:00 Room Air* 0 21 Intake/Output Intake and Output 04/07/25 07:00 Intake Total 1445 ml Balance 1445 ml Intake Oral 1095 ml IV Total 350 ml # Voids 16 # Bowel Movements 1 Medications Current Medications Medications Dose Ordered Sig/Melonie Route Start Time Stop Time Status Last Admin Dose Admin Ondansetron HCl 4 mg Q4HP PRN IV 03/31/25 12:00 04/04/25 10:56 4 MG Acetaminophen 650 mg Q6HP PRN PO 03/31/25 12:00 04/06/25 21:46 650 MG Diagnostic Test (Pha) 1 strip Q6HR 03/31/25 12:00 04/07/25 06:44 1 STRIP Insulin Human Regular Q6HR SC 03/31/25 12:00 04/07/25 06:45 3 UNITS Dextrose 50 ml UD PRN IV 03/31/25 12:00 Metronidazole 100 ml @ 100 mls/hr Q8HR IV 03/31/25 14:00 04/07/25 06:37 100 MLS/HR Ceftriaxone Sodium 50 ml @ 100 mls/hr DAILY@09 IV 04/01/25 09:00 04/07/25 08:55 100 MLS/HR Dimethicone 160 mg BID PO 03/31/25 22:00 04/07/25 08:56 160 MG Atorvastatin Calcium 40 mg HS PO 03/31/25 22:00 04/06/25 21:46 40 MG Losartan Potassium 100 mg DAILY PO 04/01/25 10:00 04/07/25 08:56 100 MG Patient Own Medication 1 cap TID PO 03/31/25 14:00 Pantoprazole Sodium 40 mg BID IV 03/31/25 22:00 04/07/25 08:55 40 MG Acetaminophen/ Hydrocodone Bitart 1 tab Q6HPRN PRN PO 04/04/25 13:45 04/05/25 05:12 1 TAB Docusate Sodium 100 mg BIDPRN PRN PO 04/06/25 19:30 Laboratory Results Laboratory Tests 04/01/25 06:02 Urinalysis Test 03/31/25 08:27 Urine Color Light-yellow (Yellow) Urine Clarity Clear (Clear) Urine pH 5.5 (5.0-9.0) Urine Specific [place] 1.009 (1.001-1.035) Urine Protein Negative (Negative) Urine Ketones Negative (Negative) Urine Blood Negative /uL (Negative) Urine Nitrite Negative (Negative) Urine Bilirubin Negative (Negative) Urine Urobilinogen Normal mg/dL (Negative) Urine Leukocyte Esterase Negative /uL (Negative) Urine RBC <1 /hpf (0 - 4) Urine Microscopic WBC < 1 /HPF (0-5) Urine Squamous Epithelial Cells Few /hpf (<5) Urine Bacteria None seen /hpf (None Seen) Urine Glucose 1+ mg/dL (Normal) H Labs and/or images reviewed: Labs reviewed by me, Image(s) reviewed by me Assessment/Plan Assessment/Plan Acute abdominal pain secondary to contained perforated jejunal diverticulitis: Resolved consult by Dr. Briseida Nichole appreciated Hypertension Diabetes type 2 Hypercholesterolemia Asthma Obesity History of diverticulosis Constant right-sided headache, CT head negative ESR slightly high 34 Plan discussed with: Patient Date of Service: Apr 07, 2025 Billing Provider: THEO CARLOS MD Common Visit Codes: [id number] INP/OBS CARE(HIGH) THEO CARLOS MD Apr 07, 2025 10:47
--- NOTE | 2025-04-07 10:50 | DVHDS2 ---
Discharge Summary Date of Admission Mar 31, 2025 at 11:48 Date of Discharge: Apr 07, 2025 Admitting Diagnosis Abdominal pain Wounds: None Labs/Diagnostic Data: Laboratory Results Test 04/07/25 06:44 04/03/25 13:00 04/01/25 06:02 03/31/25 21:30 POC Glucose 165 mg/dl (70-106) Erythrocyte Sedimentation Rate 34 mm/hr (0-20) White Blood Count 8.8 10^3/uL (4.4-10.8) Red Blood Count 4.02 10^6/uL (4.0-5.20) Hemoglobin 13.3 g/dL (12.2-16.2) Hematocrit 37.4 % (36.0-46.0) Mean Corpuscular Volume 93.0 fL (80.0-100.0) Mean Corpuscular Hemoglobin 33.0 pg (28.0-32.0) Mean Corpuscular Hemoglobin Concent 35.5 g/dL (32.0-36.0) Red Cell Distribution Width 12.9 % (11.8-14.3) Platelet Count 187 10^3/uL (140-450) Mean Platelet Volume 8.6 fL (6.9-10.8) Neutrophils (%) (Auto) 66.1 % (37.0-80.0) Lymphocytes (%) (Auto) 23.8 % (10.0-50.0) Monocytes (%) (Auto) 7.3 % (0.0-12.0) Eosinophils (%) (Auto) 2.5 % (0.0-7.0) Basophils (%) (Auto) 0.3 % (0.0-2.0) Neutrophils # (Auto) 5.8 10 ^3/uL (1.6-8.6) Lymphocytes # (Auto) 2.1 10 ^3/uL (0.4-5.4) Monocytes # (Auto) 0.6 10 ^3/uL (0-1.3) Eosinophils # (Auto) 0.2 10 ^3/uL (0-0.8) Basophils # (Auto) 0 10 ^3/uL (0-0.2) Nucleated Red Blood Cells 0.1 % Sodium Level 140 mmol/L (136-145) Potassium Level 3.8 mmol/L (3.5-5.1) Chloride Level 104 mmol/L (98-107) Carbon Dioxide Level 27 mmol/L (20-31) Anion Gap 9 (5-15) Blood Urea Nitrogen 8 mg/dL (9-23) Creatinine 0.75 mg/dL (0.550-1.02) Glomerular Filtration Rate Calc 91 mL/min (>90) BUN/Creatinine Ratio 10.7 (10.0-20.0) Serum Glucose 164 mg/dL (74-106) Calcium Level 9.0 mg/dL (8.7-10.4) Total Bilirubin 0.6 mg/dL (0.2-1.0) Aspartate Amino Transferase (AST) 15 U/L (13-40) Alanine Aminotransferase (ALT) 20 U/L (7-40) Alkaline Phosphatase 83 U/L (46-116) Total Protein 6.9 g/dL (5.7-8.2) Albumin 4.4 g/dL (3.2-4.8) Prothrombin Time 10.8 sec (9.3-11.8) Prothrombin Time INR 1.02 (0.9-1.15) Activated Partial Thromboplast Time 27.6 SEC (24.5-34.5) Test 03/31/25 10:31 03/31/25 08:27 Hemoglobin A1c 8.5 % A1C (<5.7) Urine Color Light-yellow (Yellow) Urine Clarity Clear (Clear) Urine pH 5.5 (5.0-9.0) Urine Specific [place] 1.009 (1.001-1.035) Urine Protein Negative (Negative) Urine Ketones Negative (Negative) Urine Blood Negative /uL (Negative) Urine Nitrite Negative (Negative) Urine Bilirubin Negative (Negative) Urine Urobilinogen Normal mg/dL (Negative) Urine Leukocyte Esterase Negative /uL (Negative) Urine RBC <1 /hpf (0 - 4) Urine Microscopic WBC < 1 /HPF (0-5) Urine Squamous Epithelial Cells Few /hpf (<5) Urine Bacteria None seen /hpf (None Seen) Urine Glucose 1+ mg/dL (Normal) Other Laboratory Tests 04/01/25 06:02 Brief Hx & Hospital Course: 59-year-old female with a hypertension diabetes hypercholesterolemia asthma obesity chronic pain syndrome came in for abdominal pain found to have contained perforated jejunal diverticulitis treated with the IV antibiotics and pain medications IV fluids seen by surgeon Dr. R Dionisio conservative management patient has significantly improved after NPO and NG suction. At the time of discharge patient is asymptomatic tolerating regular diet afebrile no abdominal pain cleared for discharge by surgeon. Prescription transmitted to the pharmacy. She will follow up Dr. Briseida Nichole in one week Consults/Reason for consult Surgeon Dr. Briseida Nichole Operations or Procedures CT abdomen pelvis without contrast Condition at Discharge: Fair Final Diagnosis/Problems List Acute abdominal pain secondary to contained perforated jejunal diverticulitis: Resolved consult by Dr. Briseida Nichole appreciated Hypertension Diabetes type 2 Hypercholesterolemia Asthma Obesity History of diverticulosis Constant right-sided headache, CT head negative ESR slightly high 34 Discharge Disposition: Home Discharge Instruct/Medications Diet: Regular Activity: Light activity Follow Up/Referral: Follow up with the primary Dr in one week Follow up with surgeon Dr. Briseida Nichole in one week Medications: Transmitted to pharmacy Scheduled Atorvastatin Calcium (Atorvastatin Calcium), 1 TAB PO HS, (Reported) Furosemide (Furosemide), 1 TAB PO DAILY, (Reported) Levofloxacin Hemihydrate (Levaquin 500 Mg), 1 TAB PO DAILY Losartan Potassium (Losartan Potassium), 1 TAB PO DAILY, (Reported) Metronidazole (Flagyl), 1 TAB PO TID Pantoprazole Sodium Sesquihydr (Pantoprazole Sodium Dr), 1 TAB PO DAILY, (Reported) Pantoprazole Sodium Sesquihydr (Pantoprazole Sodium), 40 MG PO BID Simethicone (Simethicone), 2 TAB PO BID, (Reported) Simethicone (Simethicone), 1 TAB PO Q8HR Tizanidine HCl (Tizanidine Hydrochloride), 1 CAP PO TID, (Reported) Scheduled PRN Ondansetron HCl (Ondansetron Hydrochloride), 1 TAB PO Q8HP PRN, (Reported) Discontinued Medications Azithromycin (Azithromycin), 1 TAB PO DAILY Ciprofloxacin Hcl (Cipro), 1 TAB PO BID Metronidazole (Flagyl), 500 MG PO BID Ondansetron Odt 4MG Tab (Zofran Po), 4 MG PO BID 39 (Time taken for discharge summary 39 minutes) Discharge Statement: "Patient was advised to return to the ER or call 911 if any headaches, dizziness, shortness of breath, chest pain, abdominal pain, bleeding, fevers, or worsening of medical condition. Patient was counseled about treatment plan, medications, possible side effects, patientverbalized understanding. All questions were answered to the best of my ability. This discharge took greater then 30 minutes in planning, reviewing documentation, counseling the patient, and discussing with other team members." ASSESSMENT ASSESSMENT Hospital Course Improved Assessment Acute abdominal pain secondary to contained perforated jejunal diverticulitis: Resolved consult by Dr. Briseida Nichole appreciated Hypertension Diabetes type 2 Hypercholesterolemia Asthma Obesity History of diverticulosis Constant right-sided headache, CT head negative ESR slightly high 34 Date of Service: Apr 07, 2025 Billing Provider: THEO CARLOS MD Common Visit Codes: [id number]/[id number] DISCH DAY >30min THEO CARLOS MD Apr 07, 2025 10:50
[2025-04-07 11:41] VITALS: BP 161/66
--- NOTE | 2025-04-07 11:49 | DVHPN2 ---
Progress Note Date Seen: Apr 07, 2025 Medical Necessity Reason Pt with a Central, PICC or Fol: No Objective vital signs Vital Sign Date Time Temp Pulse Resp B/P (MAP) Pulse Ox O2 Delivery O2 Flow Rate FiO2 04/07/25 09:00 97.6 51 19 161/66 (97) 98 97.6 04/07/25 08:00 Room Air* 0 21 Total Intake and Output 04/06/25 04/06/25 04/07/25 15:00 23:00 07:00 Intake Total 150 ml 875 ml 420 ml Balance 150 ml 875 ml 420 ml medications Current Medications Medications Dose Ordered Sig/Melonie Route Start Time Stop Time Status Last Admin Dose Admin Ondansetron HCl 4 mg Q4HP PRN IV 03/31/25 12:00 04/04/25 10:56 4 MG Acetaminophen 650 mg Q6HP PRN PO 03/31/25 12:00 04/06/25 21:46 650 MG Diagnostic Test (Pha) 1 strip Q6HR 03/31/25 12:00 04/07/25 06:44 1 STRIP Insulin Human Regular Q6HR SC 03/31/25 12:00 04/07/25 06:45 3 UNITS Dextrose 50 ml UD PRN IV 03/31/25 12:00 Metronidazole 100 ml @ 100 mls/hr Q8HR IV 03/31/25 14:00 04/07/25 06:37 100 MLS/HR Ceftriaxone Sodium 50 ml @ 100 mls/hr DAILY@09 IV 04/01/25 09:00 04/07/25 08:55 100 MLS/HR Dimethicone 160 mg BID PO 03/31/25 22:00 04/07/25 08:56 160 MG Atorvastatin Calcium 40 mg HS PO 03/31/25 22:00 04/06/25 21:46 40 MG Losartan Potassium 100 mg DAILY PO 04/01/25 10:00 04/07/25 08:56 100 MG Patient Own Medication 1 cap TID PO 03/31/25 14:00 Pantoprazole Sodium 40 mg BID IV 03/31/25 22:00 04/07/25 08:55 40 MG Acetaminophen/ Hydrocodone Bitart 1 tab Q6HPRN PRN PO 04/04/25 13:45 04/05/25 05:12 1 TAB Docusate Sodium 100 mg BIDPRN PRN PO 04/06/25 19:30 laboratory and microbiology Laboratory Tests 04/01/25 06:02 Test 04/01/25 06:02 Range/Units Serum Glucose 164 H 74-106 mg/dL Problem List/Assessment/Plan Problem List/Assessment/Plan AEBRILE VSS ABD SOFT NON TENDER BM + HERBERTH DIET CLEARED FOR DISCHARGE F/UP WITH PCP Plan discussed with: Patient My Orders My Orders Orders - RAMY CHEN MD Procedure Category Date Status Time Consistent DIET 04/07/25 Transmitted Carb(Ccho)Diabetes Breakfast Dietary Evaluation Review Comments: Pt meets criteria for Severe Protein-Calorie Malnutrition in the setting of acute illness based on PO intake <50% EER x 6 days and severe wt loss 6.4kg/6% in 5 days Nutrition recommenadtion 1) Ensure Clear 240 ml TID 2) Consider TPN supplementation 3) [facility] to [facility] + cardiac soft diet as medically feasible 4) Monitor PO intake, lab values, weight trend, and I/O Expected Outcomes/Goals: Intake to meet at least 75% estimated needs GI symptoms to improve follow up 2-3 days Food and Nutrition Intake (Sev: <50% est energy req 5days Interpretation of weight loss: >2% in 1 week Protein Calorie Malnutrition: Severe Is there a minimum of two crit: Yes RAMY CHEN MD Apr 07, 2025 11:48
== END 2025-04-07 12:50 | disposition home or self-care (01) | DRG 244 ==
LOC: ER 08:04 → OVERFLOW 11:48 → WEST WING 21:12
PROVIDERS: ADMIT Family Medicine; ATTEND Family Medicine
PROC: 0D9670Z Drainage of Stomach with Drainage Device, Via Natural or Artificial Opening (ICD-10-PCS; principal; 2025-03-31)
DX: K57.00 Diverticulitis of small intestine with perforation and abscess without bleeding (principal); E43 Unspecified severe protein-calorie malnutrition; E11.65 Type 2 diabetes mellitus with hyperglycemia; E66.9 Obesity, unspecified; J45.909 Unspecified asthma, uncomplicated; I10 Essential (primary) hypertension; E86.0 Dehydration; E78.00 Pure hypercholesterolemia, unspecified; G89.4 Chronic pain syndrome; M54.9 Dorsalgia, unspecified; K57.30 Diverticulosis of large intestine without perforation or abscess without bleeding; Z79.899 Other long term (current) drug therapy; Z68.37 Body mass index [BMI] 37.0-37.9, adult
CPT/HCPCS: 36415; 70450; 71045; 74176; 80048; 80053; 81001; 82962; 83036; 85025; 85610; 85652; 85730; 86850; 86900; 86901; 96365; 96367; 96375; G0378; J1815; J2405; J2470; J2543; J3490

== ENCOUNTER 2025-04-25 08:36 | Inpatient (IN) | payer MEDICAID ==
[~2025-04-25] VITALS: Ht 160 cm; Wt 101.4 kg
[~2025-04-25 08:36] MED LIST changes: +ATOR40TA52 PO; -AZIT500T66 PO; -CIPR-173 PO; +FURO20TA4 PO; +LEVO500T91 PO; +LOSA-535 PO; +METR-344 PO; -METR375C PO; +ONDA-188 PO; +PANT40T PO; +PANT40TA57 PO; +SIME80CH49 PO; +TIZA6CAP PO; -ZOFR4T PO
--- NOTE | 2025-04-25 08:53 | ED.PDOC ---
History of Present Illness HPI Comments 60 y/o obese F presents with nonradiating, RLQ abdominal pain. Significant history of arthritis, asthma, diverticulosis and diverticulitis, DM, HLD, and HTN. Patient endorses on 3x week history of pain following unprovoked and atraumatic onset. She comments on being, already, seen for pain, with accompanying 9x day hospital admission and instruction to followup with outpatient surgeon, Dr. Audrey Nichole on 04/27/25 following Diverticulitis diagnosis. No reported recent travel, injuries, sick contact, or further pertinent history. Denial of any nausea, vomiting, diarrhea, constipation, urinary symptoms, fever, chills, or further associated symptoms. Patient also states on not taking any of her prescription medication, today. Chief Complaint: Abdominal Pain Time Seen by MD: 08:45 Primary Care Provider: JEANNE Reviewed Notes: Nurses Notes, Medications, Allergies Allergies: Coded Allergies: NO KNOWN ALLERGIES (Unverified , 05/19/16) Home Meds Active Scripts Simethicone (Simethicone) 80 Mg Chw, 1 TAB PO Q8HR, #20 TAB Prov:THEO CARLOS MD 04/07/25 Levofloxacin Hemihydrate (LEVAQUIN 500 MG) 500 Mg Tab, 1 TAB PO DAILY, #10 TAB Prov:THEO CARLOS MD 04/07/25 Metronidazole (Flagyl) 500 Mg Tab, 1 TAB PO TID, #30 TAB Prov:THEO CARLOS MD 04/07/25 Pantoprazole Sodium Sesquihydr (Pantoprazole Sodium) 40 Mg Tab, 40 MG PO BID, #30 TAB Prov:THEO CARLOS MD 04/07/25 Reported Medications Ondansetron HCl (Ondansetron Hydrochloride) 4 Mg Tab, 1 TAB PO Q8HP PRN 03/31/25 Pantoprazole Sodium Sesquihydr (Pantoprazole Sodium Dr) 40 Mg Tab, 1 TAB PO DAILY 03/31/25 Atorvastatin Calcium (ATORVASTATIN CALCIUM) 40 Mg Tab, 1 TAB PO HS 03/31/25 Furosemide (Furosemide) 20 Mg Tab, 1 TAB PO DAILY 03/31/25 Losartan Potassium (Losartan Potassium) 100 Mg Tab, 1 TAB PO DAILY 03/31/25 Tizanidine HCl (Tizanidine Hydrochloride) 6 Mg Cap, 1 CAP PO TID 03/31/25 Simethicone (Simethicone) 80 Mg Chw, 2 TAB PO BID 03/31/25 Information Source: Patient Mode of Arrival: Ambulatory Past Medical History PAST MEDICAL HISTORY: Arthritis, Asthma, DM, High Lipids, HTN Past Medical History (Other): History of diverticulosis and diverticulitis Surgical History: Denies all surgeries SERVOMECHANISM ASSEMBLER History: No Pertinent SERVOMECHANISM ASSEMBLER History Family History Family History: Reviewed,noncontributory to illness Social History Smoker: Non-Smoker Alcohol: Denies ETOH Use Drugs: Denies Drug Use Lives In: Home All Other Systems: Reviewed and Negative (Comprehensive systems review obtained and negative except for what is stated in the HPI.) Physical Exam General Appearance: Moderate Distress HEENT: Normal ENT Inspection, Pharynx Normal, TMs Normal Neck: Full Range of Motion, Non-Tender, Normal, Normal Inspection Respiratory: Chest Non-Tender, Lungs Clear, No Accessory Muscle Use, No Respiratory Distress, Normal Breath Sounds Cardiovascular: No Edema, No JVD, No Murmur, No Gallop, Normal Peripheral Pulses, Regular Rate/Rhythm Breast Exam: Deferred Gastrointestinal: Diffuse Genitalia: Deferred Pelvic: Deferred Rectal: Deferred Extremities: No calf tenderness, Normal capillary refill, Normal inspection, Normal range of motion, Non-tender, No pedal edema Musculoskeletal : Apperance: Normal Neurologic: Alert, automation application engineer II-XII nml as Tested, No Motor Deficits, Normal Affect, Normal Mood, No Sensory Deficits Cerebellar Function: Normal Reflexes: Normal Skin: Dry, Normal Color, Warm Peripheral Pulses: 3+ Radial (R), 3+ Radial (L) Lymphatic: No Adenopathy Was a procedure done? Was a procedure done?: No Differential Dx Considerations may include: diverticulitis, appendicitis, PID, ovarian cysts/torsion, nephrolithiasis, pyelonephritis, cystitis, musculoskeletal pain, bowel obstruction, viral syndrome, among others X-Ray, Labs, Meds, VS Vital Signs Date Time Temp Pulse Resp B/P (MAP) Pulse Ox O2 Delivery O2 Flow Rate FiO2 04/25/25 08:38 98.0 75 18 115/67 95 98.0 Lab Test 04/25/25 09:36 04/25/25 09:12 Range/Units Urine Color Pending Urine Clarity Pending Urine pH Pending Urine Specific [place] Pending Urine Protein Pending Urine Ketones Pending Urine Blood Pending Urine Nitrite Pending Urine Bilirubin Pending Urine Urobilinogen Pending Urine Leukocyte Esterase Pending Urine RBC Pending Urine Microscopic WBC Pending Urine Squamous Epithelial Cells Pending Urine Bacteria Pending Urine Glucose Pending White Blood Count 9.3 4.4-10.8 10^3/uL Red Blood Count 4.29 4.0-5.20 10^6/uL Hemoglobin 13.8 12.2-16.2 g/dL Hematocrit 39.3 36.0-46.0 % Mean Corpuscular Volume 91.6 80.0-100.0 fL Mean Corpuscular Hemoglobin 32.2 H 28.0-32.0 pg Mean Corpuscular Hemoglobin Concent 35.1 32.0-36.0 g/dL Red Cell Distribution Width 13.0 11.8-14.3 % Platelet Count 192 140-450 10^3/uL Mean Platelet Volume 8.5 6.9-10.8 fL Neutrophils (%) (Auto) 72.1 37.0-80.0 % Lymphocytes (%) (Auto) 21.1 10.0-50.0 % Monocytes (%) (Auto) 5.6 0.0-12.0 % Eosinophils (%) (Auto) 0.9 0.0-7.0 % Basophils (%) (Auto) 0.3 0.0-2.0 % Neutrophils # (Auto) 6.7 1.6-8.6 10 ^3/uL Lymphocytes # (Auto) 2.0 0.4-5.4 10 ^3/uL Monocytes # (Auto) 0.5 0-1.3 10 ^3/uL Eosinophils # (Auto) 0.1 0-0.8 10 ^3/uL Basophils # (Auto) 0 0-0.2 10 ^3/uL Nucleated Red Blood Cells 0.0 % Sodium Level 138 136-145 mmol/L Potassium Level 4.5 3.5-5.1 mmol/L Chloride Level 102 98-107 mmol/L Carbon Dioxide Level 28 20-31 mmol/L Anion Gap 8 5-15 Blood Urea Nitrogen 8 L 9-23 mg/dL Creatinine 0.70 0.550-1.02 mg/dL Glomerular Filtration Rate Calc 98 >90 mL/min BUN/Creatinine Ratio 11.4 10.0-20.0 Serum Glucose 170 H 74-106 mg/dL Calcium Level 9.5 8.7-10.4 mg/dL Patient alert. Complaining of abdominal pain. Was seen here recently for similar symptom. Vitals stable. Answering questions. Blood sugar elevated. Establish intravenous access. Was given fluids. Was given morphine. Was given Zofran. Was given Zosyn. Blood sugar we will be treated with fluids. Continues to have abdominal pain. She is afraid she is going to . Surgical consultation with Dr. Nichole. Explained to the patient. Continue monitoring. Time of 1ST Reevaluation: 19:15 Reevaluation 1ST: Unchanged Patient Education/Counseling: Diagnosis, Treatment Family Education/Counseling: No Family Present SEPSIS Sepsis Screen Date sepsis recognized/suspect: Apr 25, 2025 Time Sepsis recognized/suspect: 837 Recent Procedure: No On Antibiotic Therapy: No Respiratory Rate >20: No Heart Rate >90: No Temp<36 C (96.8 F) or >38.3 C: No SBP <90 or MAP <65 mmHG: No New Acute Mental Status Change: No Is the patient on CPAP, BIPAP,: No Physician Orders Urinalysis (04/25/25 08:56) Ct Ab Pel Wo Con-No Oral Or Iv (04/25/25 08:56) Vital Signs Date Time Temp Pulse Resp B/P (MAP) Pulse Ox O2 Delivery O2 Flow Rate FiO2 04/25/25 08:38 98.0 75 18 115/67 95 98.0 Laboratory Tests Test 04/25/25 09:12 White Blood Count 9.3 10^3/uL (4.4-10.8) Departure 1 Departure Time of Disposition: 10:18 Impression: Primary Impression: Non-specific colitis Additional Impressions: Kidney stone Uncontrolled diabetes mellitus Qualified Codes: E13.65 - Other specified diabetes mellitus with hyperglycemia Disposition: ADMITTED INPATIENT Admit to: Med Surg Condition: Guarded Critical Care Note Critical Care Time?: No Stability Stability form required: No Heart Score Heart Score: Heart Score Response (Comments) Value History N/A 0 EKG N/A 0 Age N/A 0 Risk Factors N/A 0 Troponin N/A 0 Total 0 I personally scribed for MICKEY BLEVINS MD ([email or web address]) on 04/25/25 at 08:53. Electronically submitted by Farooq Kong ([email or web address]). I personally scribed for MICKEY BLEVINS MD ([email or web address]) on 04/25/25 at 09:10. Electronically submitted by Farooq Kong ([email or web address]). MICKEY BLEVINS MD Apr 25, 2025 08:53
[2025-04-25 09:29] LABS: Hematocrit 39.3 % (36.0-46.0); Hemoglobin 13.8 g/dL (12.2-16.2); Mean Corpuscular Hemoglobin 32.2 pg (28.0-32.0); Mean Corpuscular Volume 91.6 fL (80.0-100.0); Nucleated Red Blood Cells % 0.0 %
[2025-04-25 09:31] LABS: Chloride 102 mmol/L (98-107); Potassium 4.5 mmol/L (3.5-5.1); Sodium 138 mmol/L (136-145)
[2025-04-25 09:32] LABS: Anion Gap 8 (5-15); Carbon Dioxide 28 mmol/L (20-31)
[2025-04-25 09:33] LABS: Calcium 9.5 mg/dL (8.7-10.4)
[2025-04-25 09:37] LABS: BUN/Creatinine Ratio 11.4 (10.0-20.0)
[2025-04-25 09:40] LABS: Blood Urea Nitrogen 8 mg/dL (9-23); Glucose 170 mg/dL (74-106)
--- NOTE | 2025-04-25 09:50 | DVH ---
Exam: CT CT AB PEL WO CON-NO ORAL OR IV History: colitis Comparison Study: CT CT AB PEL WO CON-NO ORAL OR IV on DOS: 04/02/25, CT CT AB PEL WO CON-NO ORAL OR IV on DOS: 03/31/25, CT CT AB PEL WO CON-NO ORAL OR IV on DOS: 02/04/23 Technique: Multidetector spiral CT of the abdomen was performed from lung bases to pubic symphysis. I maging was performed without IV contrast. Axial, coronal and sagittal multiplanar reformats were obta ined from the axial data set by the technologist. Radiation Dose : 1. Abdomen/Pelvis: CTDIvol 22.62 mGy, DLP 1222.7 mGy*cm. Findings: Evaluation of solid organs is limited due to lack of intravenous contrast use. Lung Bases: No acute or significant lung base finding. Normal heart size. No pleural or pericardial effusion. Liver: The liver is normal in size. No focal lesions. Gallbladder and Biliary Tree: Unremarkable Spleen: Unremarkable Pancreas: The pancreas is grossly normal in appearance. Adrenal Glands: Unremarkable Kidneys: No hydronephrosis. 0.1 cm nonobstructing stone in the right mid kidney. Left kidney is unre markable. Bladder: Grossly unremarkable for degree of distention. Bowel: The stomach is grossly normal in appearance. Diverticulosis. Mild colonic bowel wall thickenin g. The appendix is not visualized; however, no secondary findings of acute appendicitis identified. Ascites: Absent Lymphadenopathy: No mesenteric, retroperitoneal or periportal lymphadenopathy. Abdominal Wall and Mesentery: Unremarkable. Vasculature: The visualized abdominal aorta is normal in size and caliber. Evaluation of abdominal a nd pelvic vessels is limited due to lack of intravenous contrast. Pelvic Organs: Unremarkable Musculoskeletal: No aggressive focal bony lesions, acute fractures or dislocation. IMPRESSION: Possible mild colitis. Diverticulosis. Punctate 0.1 cm nonobstructing stone in the right mid kidney.
[2025-04-25 10:28] LABS: Urine Protein, UAD Negative (Negative)
[2025-04-25] MEDS: ONDANSETRON HCL 4 MG/2 ML VIAL IV ONE (11:02)
[2025-04-25] MEDS: PIPERACILLIN-TAZOB 3.375GM 100 ML IV ONE ×2 (11:02→11:20)
[2025-04-25] MEDS: SODIUM CHLORIDE 0.9% 1,000 ML IVB ONE (11:03)
[2025-04-25] MEDS: MORPHINE SULFATE 4 MG/ML SYR/VIAL IV ONE (11:20)
--- NOTE | 2025-04-25 15:27 | DVHHPRES ---
History of Present Illness Resident Creating Document: SADIE KATZ RESIDENT History of Present Illness Patient is 60 years old female with past medical history of hypertension, diabetes mellitus type 2, hyperlipidemia, asthma, arthritis, history of diverticulosis with the diverticulitis came with a complaint of abdominal pain. As per patient she has been having abdominal pain started earlier this month which is going on for last couple of weeks but got worse for last 3 days, 7/10, constant, crampy in nature, associated nausea but not vomiting. Patient reported having hard stool during bowel movement. Denied any fever, dysuria, diarrhea, chest pain no shortness of breaths. Patient was recently discharged from [facility] [place]07[place] due to mildly perforated jejunal diverticulitis, patient was conservatively treated. Initial lab workup revealed random blood sugar 170. CT abdomen revealed possible mild colitis. Past Medical History hypertension, diabetes mellitus type 2, hyperlipidemia, asthma, arthritis, history of diverticulosis Past Surgical History None Past Social History Denies smoking/alcoholism/drug abuse, lives at home Review of Systems Review of Systems Allergy- NKDA Cardiovascular- deny acute chest pain or shortness of breath or cough or palpitation Respiratory denies cough or short of breath or wheezing Gastrointestinal- denies any rectal bleedingor vomiting Musculoskeletal-denies acute joint swelling or tenderness or redness Neurological- denies acute dysarthria, dysphagia, change in vision Psychiatry- denies depression or SI or HI Skin- denies acute rash or purpura Allergies: Coded Allergies: NO KNOWN ALLERGIES (Unverified , 05/19/16) Medications Current Medications Medications Dose Ordered Sig/Melonie Route Start Time Stop Time Status Last Admin Dose Admin Sodium Chloride 1,000 ml @ 60 mls/hr [id number] IV 04/25/25 15:30 UNV Sodium Chloride 1,000 ml @ 120 mls/hr Q8H20M IV 04/25/25 15:30 UNV Ondansetron HCl 4 mg Q4HP PRN IV 04/25/25 15:30 UNV Enoxaparin Sodium 40 mg DAILY SC 04/26/25 10:00 UNV Morphine Sulfate 2 mg Q30M PRN IV 04/25/25 15:30 UNV Ceftriaxone Sodium 50 ml @ 100 mls/hr DAILY@09 IV 04/26/25 09:00 UNV Metronidazole 100 ml @ 100 mls/hr Q8HR IV 04/25/25 22:00 UNV Pantoprazole Sodium 40 mg DAILY IV 04/26/25 10:00 UNV Exam Vital Signs Vital Signs Date Time Temp Pulse Resp B/P (MAP) Pulse Ox O2 Delivery O2 Flow Rate FiO2 04/25/25 15:22 98.3 49 16 124/87 (99) 95 98.3 04/25/25 12:08 Room Air Exam General examination- awake, alert, oriented HEENT- PEERLA, no acute nasal discharge Cardiovascular- S1-S2 audible, rate and rhythm regular, no murmur Respiratory- CTAB, no wheeze or rhonchi Gastrointestinal-right lower abdominal tenderness+, bowel sound+. Nondistended Musculoskeletal-no acute joint swelling or tenderness or redness Lower extremity- no leg edema Neurological- cranial nerves intact, no acute dysarthria or dysphagia Psychiatry- denies depression or SI or HI Skin- no acute rash or purpura Labs/Xrays Labs Test 04/25/25 09:36 04/25/25 09:12 Range/Units Urine Color Light-yellow Yellow Urine Clarity Clear Clear Urine pH 5.0 5.0-9.0 Urine Specific [place] 1.011 1.001-1.035 Urine Protein Negative Negative Urine Ketones Negative Negative Urine Blood Negative Negative /uL Urine Nitrite Negative Negative Urine Bilirubin Negative Negative Urine Urobilinogen Normal Negative mg/dL Urine Leukocyte Esterase Negative Negative /uL Urine RBC <1 0 - 4 /hpf Urine Microscopic WBC 1 0-5 /HPF Urine Squamous Epithelial Cells Few <5 /hpf Urine Bacteria Few H None Seen /hpf Urine Glucose Normal Normal mg/dL White Blood Count 9.3 4.4-10.8 10^3/uL Red Blood Count 4.29 4.0-5.20 10^6/uL Hemoglobin 13.8 12.2-16.2 g/dL Hematocrit 39.3 36.0-46.0 % Mean Corpuscular Volume 91.6 80.0-100.0 fL Mean Corpuscular Hemoglobin 32.2 H 28.0-32.0 pg Mean Corpuscular Hemoglobin Concent 35.1 32.0-36.0 g/dL Red Cell Distribution Width 13.0 11.8-14.3 % Platelet Count 192 140-450 10^3/uL Mean Platelet Volume 8.5 6.9-10.8 fL Neutrophils (%) (Auto) 72.1 37.0-80.0 % Lymphocytes (%) (Auto) 21.1 10.0-50.0 % Monocytes (%) (Auto) 5.6 0.0-12.0 % Eosinophils (%) (Auto) 0.9 0.0-7.0 % Basophils (%) (Auto) 0.3 0.0-2.0 % Neutrophils # (Auto) 6.7 1.6-8.6 10 ^3/uL Lymphocytes # (Auto) 2.0 0.4-5.4 10 ^3/uL Monocytes # (Auto) 0.5 0-1.3 10 ^3/uL Eosinophils # (Auto) 0.1 0-0.8 10 ^3/uL Basophils # (Auto) 0 0-0.2 10 ^3/uL Nucleated Red Blood Cells 0.0 % Sodium Level 138 136-145 mmol/L Potassium Level 4.5 3.5-5.1 mmol/L Chloride Level 102 98-107 mmol/L Carbon Dioxide Level 28 20-31 mmol/L Anion Gap 8 5-15 Blood Urea Nitrogen 8 L 9-23 mg/dL Creatinine 0.70 0.550-1.02 mg/dL Glomerular Filtration Rate Calc 98 >90 mL/min BUN/Creatinine Ratio 11.4 10.0-20.0 Serum Glucose 170 H 74-106 mg/dL Calcium Level 9.5 8.7-10.4 mg/dL SEPSIS Sepsis Screen Date sepsis recognized/suspect: Apr 25, 2025 Time Sepsis recognized/suspect: 0838 Recent Procedure: No On Antibiotic Therapy: No Respiratory Rate >20: No Heart Rate >90: No Temp<36 C (96.8 F) or >38.3 C: No SBP <90 or MAP <65 mmHG: No New Acute Mental Status Change: No Is the patient on CPAP, BIPAP,: No Physician Orders Ct Ab Pel Wo Con-No Oral Or Iv (04/25/25 08:56) * Surgical Consult (04/25/25 ) Admit (04/25/25 15:22) Code Status (04/25/25 15:22) Sodium Chloride 0.9% (04/25/25 15:30) Sodium Chloride 0.9% (04/25/25 15:30) Ondansetron Hcl (Zofran) (04/25/25 15:30) Enoxaparin Sodium (Lovenox) (04/26/25 10:00) Complete Blood Count (04/26/25 04:00) Comprehensive Metabolic Panel (04/26/25 04:00) Npo (Nothing By Mouth) Diet (04/25/25 Dinner) Morphine Sulfate Injection (04/25/25 15:30) Notify Md Of Changes From Base (04/25/25 15:22) Ceftriaxone 1gm/50ml D5w (Rocephin) (04/25/25 15:30) Ceftriaxone 1gm/50ml D5w (Rocephin) (04/26/25 09:00) Metronidazole Ivpb Flagyl (04/25/25 22:00) Metronidazole Ivpb Flagyl (04/25/25 15:30) Pantoprazole (Protonix) (04/25/25 15:30) Pantoprazole (Protonix) (04/26/25 10:00) Vital Signs Date Time Temp Pulse Resp B/P (MAP) Pulse Ox O2 Delivery O2 Flow Rate FiO2 04/25/25 15:22 98.3 49 16 124/87 (99) 95 98.3 04/25/25 13:00 65 15 126/74 04/25/25 12:08 97.9 53 16 144/89 (107) 99 97.9 04/25/25 12:08 53 16 99 Room Air 04/25/25 11:20 60 19 117/78 04/25/25 08:38 98.0 75 18 115/67 95 98.0 Laboratory Tests Test 04/25/25 09:12 White Blood Count 9.3 10^3/uL (4.4-10.8) Medications Medications Dose Ordered Sig/Melonie Route Start Time Stop Time Status Last Admin Dose Admin Morphine Sulfate 4 mg ONCE ONCE IV 04/25/25 09:00 04/25/25 09:01 DC 04/25/25 11:20 4 MG Ondansetron HCl 4 mg ONCE ONCE IV 04/25/25 09:00 04/25/25 09:01 DC 04/25/25 11:02 4 MG Piperacillin Sod/ Tazobactam Sod 100 ml @ 100 mls/hr ONCE ONCE IV 04/25/25 10:30 04/25/25 11:29 DC 04/25/25 11:02 100 MLS/HR Sodium Chloride 1,000 ml @ 1,000 mls/hr Q1H ONCE IVB 04/25/25 09:00 04/25/25 09:59 DC 04/25/25 11:03 1,000 MLS/HR Assessment/Plan Assessment/Plan Assessment and plan # acute abdominal pain, rule out acute appendicitis/salpingitis/cholec ystitis/ureteric stone -CT abdomen revealed possible mild colitis -WBC WNL -right lower abdominal tenderness positive -NPO -continue IV normal saline as prescribed -continue IV ceftriaxone and IV metronidazole as prescribed -pending ultrasound of the lower abdomen for further evaluation and care # hypertension -monitor blood pressure # diabetes mellitus type 2 -insulin sliding scale NPO mild scale # nephrolithiasis -continue pain medication as prescribed # hyperlipidemia # history of arthritis # asthma no acute exacerbation -nebulization PRN # obesity BMI 37.9 Goals of care, Code status full code; discussed with >15 minutes PUD prophylaxis: Pantoprazole DVT prophylaxis: Lovenox Plan discussed with Dr. Faulkner , nursing staff, Total time spent on patient evaluation, chart review, assessment and plan, discussion discussion >35 minutes Plan discussed with: Patient, Other My Orders Orders - SADIE KATZ RESIDENT Procedure Category Date Status Time Admit ADMIT 04/25/25 Transmitted 15:22 Code Status CODE 04/25/25 Transmitted 15:22 Sodium Chloride 0.9% PHA 04/25/25 Logged 15:30 Sodium Chloride 0.9% PHA 04/25/25 Logged 15:30 Ondansetron Hcl PHA 04/25/25 Logged (Zofran) 15:30 Enoxaparin Sodium PHA 04/26/25 Logged (Lovenox) 10:00 Complete Blood Count LAB 04/26/25 Verified 04:00 Comprehensive LAB 04/26/25 Verified Metabolic Panel 04:00 Npo (Nothing By DIET 04/25/25 Transmitted Mouth) Diet Dinner Morphine Sulfate PHA 04/25/25 Logged Injection 15:30 Notify Of Changes CHRISTINE 04/25/25 In Process From Base 15:22 Ceftriaxone 1gm/50ml PHA 04/25/25 Logged D5w (Rocephin) 15:30 Ceftriaxone 1gm/50ml PHA 04/26/25 Logged D5w (Rocephin) 09:00 Metronidazole Ivpb PHA 04/25/25 Transmitted Flagyl 22:00 Metronidazole Ivpb PHA 04/25/25 Transmitted Flagyl 15:30 Pantoprazole PHA 04/25/25 Transmitted (Protonix) 15:30 Pantoprazole PHA 04/26/25 Transmitted (Protonix) 10:00 Date of Service: Apr 25, 2025 Billing Provider: SAIMA HOLLINGSWORTH MD Common Visit Codes: [id number] INP/OBS CARE (HIGH) Secondary Visit Codes: [id number] CARE PLAN 30 MINUTES SADIE KATZ RESIDENT Apr 25, 2025 15:27 SAIMA HOLLINGSWORTH MD Apr 29, 2025 23:05
[2025-04-25] MEDS ORDERED: SODIUM CHLORIDE 0.9% 1,000 ML IV SCH (15:30)
[2025-04-25] MEDS ORDERED: DEXTROSE (50%) 50ML SYRG IV PRN (16:00)
[2025-04-25] MEDS ORDERED: ALBUTEROL SULF 2.5 MG/0.5ML(0.5%) NEB SOLN NEB PRN (16:15)
[2025-04-25] MEDS ORDERED: IPRATROPIUM BROM 0.5 MG/2.5ML INH SOL NEB PRN ×3 (16:15)
[2025-04-25] MEDS: PANTOPRAZOLE 40 MG/10 ML VIAL INJ IV ONE (16:15)
--- NOTE | 2025-04-25 16:37 | DVH ---
EXAM: US RIGHT LOWER QUAD CLINICAL HISTORY: R/O APPENDICITIS PER RESIDENT BABU COMPARISON: None TECHNIQUE: Real-time ultrasound of the right lower quadrant was performed utilizing a high resolutio n linear transducer. Findings and Impression: The appendix is not definitively visualized. Cannot exclude acute appendicitis. If clinically indicat ed, CT or MR may be useful for further evaluation. No free fluid, focal fluid collections, or free air noted within the right lower quadrant.
[2025-04-25] MEDS ORDERED: ONDANSETRON HCL 4 MG/2 ML VIAL IV PRN (16:45)
[2025-04-25] MEDS: ONDANSETRON HCL 4 MG/2 ML VIAL IV PRN (16:45)
[2025-04-25] MEDS: MORPHINE SULFATE INJ 2 MG/ml SYRG IV PRN ×2 (16:47→21:21)
[2025-04-25 17:20] VITALS: BP 128/79; PULSE 51; RESP 17; TEMP 98.8; O2SAT 97
[2025-04-25] MEDS: ACCU-CHEK COMFORT CURVE STRIP VI SCH (17:26)
[2025-04-25] MEDS: SODIUM CHLORIDE 0.9% 1,000 ML IV SCH (17:26)
[2025-04-25] MEDS: InsuLIN REG 1unit/0.01ml Soln (100units/ml) SC SCH (17:28)
[2025-04-25 17:39] LABS: Alanine Aminotransferase 24.0 U/L (7-40); Alkaline Phosphatase 91.0 U/L (46-116); Bilirubin, Direct 0.2 mg/dL (<0.3); Bilirubin, Total 0.6 mg/dL (0.2-1.0); Magnesium 1.6 mg/dL (1.6-2.6); Total Protein 7.1 g/dL (5.7-8.2)
[2025-04-25 17:51] LABS: Albumin 4.8 g/dL (3.2-4.8)
[2025-04-25 18:53] LABS: Opiate Scree,Urine Neg (NEGATIVE)
[2025-04-25 18:54] LABS: Cannabinoid Screen, Urine Pos (NEGATIVE)
[2025-04-25 18:59] LABS: Amphetamine Screen, Urine Neg (NEGATIVE); Barbiturate Scree,Urine Neg (NEGATIVE); Benzodiazephine Screen, Urine Neg (NEGATIVE); Cocaine Screen, Urine Neg (NEGATIVE); Phencyclidine Screen, Urine Neg (NEGATIVE)
[2025-04-25 21:00] VITALS: BP 117/69; PULSE 69; RESP 18; TEMP 97.9; O2SAT 90
[2025-04-26] VITALS (7 sets, daily range): BP systolic 130–158; BP diastolic 75–89; PULSE 53–82; RESP 16–19; TEMP 97.5–98.8; O2SAT 94–98
[2025-04-26 06:47] LABS: Hematocrit 34.2 % (36.0-46.0); Hemoglobin 12.3 g/dL (12.2-16.2); Mean Corpuscular Hemoglobin 32.7 pg (28.0-32.0); Mean Corpuscular Volume 90.9 fL (80.0-100.0); Nucleated Red Blood Cells % 0.0 %
[2025-04-26 07:03] LABS: Alanine Aminotransferase 16 U/L (7-40); Alkaline Phosphatase 66 U/L (46-116); Anion Gap 7 (5-15); Carbon Dioxide 27 mmol/L (20-31); Chloride 107 mmol/L (98-107); Potassium 3.6 mmol/L (3.5-5.1); Sodium 141 mmol/L (136-145)
[2025-04-26 07:04] LABS: BUN/Creatinine Ratio 7.7 (10.0-20.0); Blood Urea Nitrogen 5 mg/dL (9-23); Calcium 8.6 mg/dL (8.7-10.4); Glucose 146 mg/dL (74-106); Total Protein 5.8 g/dL (5.7-8.2)
[2025-04-26 07:05] LABS: Albumin 3.7 g/dL (3.2-4.8)
[2025-04-26 07:06] LABS: Bilirubin, Total 0.5 mg/dL (0.2-1.0)
[2025-04-26] MEDS: ENOXAPARIN SOD 40 MG/0.4 ML SYRINGE SC SCH (08:57)
[2025-04-26] MEDS: PANTOPRAZOLE 40 MG/10 ML VIAL INJ IV SCH (08:57)
[2025-04-26] MEDS: MAGNESIUM SULFATE 1GM/100ML 100 ML IV ONE (09:40)
--- NOTE | 2025-04-26 13:58 | DVH ---
Technique: Real-time ultrasound images through the pelvis using a transabdominal transducer. Indication: pain in lower abdomen Comparison: None Findings: The uterus measures 11.1 cm. The endometrial stripe measures 1 mm. There are no focal masses. There is no abnormal flow in the endometrium. Right ovary measures 2.5 x 1.9 x 2.1 cm. Normal flow on color doppler images. No focal masses are wisam ntified. Left ovary measures 2 x 1.0 x 1.6 cm. Normal flow on color doppler images. No focal masses are ident ified. There is no significant free fluid in the pelvis. Impression: Unremarkable transabdominal pelvic ultrasound.
--- NOTE | 2025-04-26 17:29 | DVHINCON2 ---
Date of service: Apr 26, 2025 Family History: FH: liver disease G8 MOTHER G8 FATHER Allergies: Coded Allergies: NO KNOWN ALLERGIES (Unverified , 05/19/16) Home Meds Active Scripts Simethicone (Simethicone) 80 Mg Chw, 1 TAB PO Q8HR, #20 TAB Prov:THEO CARLOS MD 04/07/25 Levofloxacin Hemihydrate (LEVAQUIN 500 MG) 500 Mg Tab, 1 TAB PO DAILY, #10 TAB Prov:THEO CARLOS MD 04/07/25 Metronidazole (Flagyl) 500 Mg Tab, 1 TAB PO TID, #30 TAB Prov:THEO CARLOS MD 04/07/25 Pantoprazole Sodium Sesquihydr (Pantoprazole Sodium) 40 Mg Tab, 40 MG PO BID, #30 TAB Prov:THEO CARLOS MD 04/07/25 Reported Medications Ondansetron HCl (Ondansetron Hydrochloride) 4 Mg Tab, 1 TAB PO Q8HP PRN 03/31/25 Pantoprazole Sodium Sesquihydr (Pantoprazole Sodium Dr) 40 Mg Tab, 1 TAB PO DAILY 03/31/25 Atorvastatin Calcium (ATORVASTATIN CALCIUM) 40 Mg Tab, 1 TAB PO HS 03/31/25 Furosemide (Furosemide) 20 Mg Tab, 1 TAB PO DAILY 03/31/25 Losartan Potassium (Losartan Potassium) 100 Mg Tab, 1 TAB PO DAILY 03/31/25 Tizanidine HCl (Tizanidine Hydrochloride) 6 Mg Cap, 1 CAP PO TID 03/31/25 Simethicone (Simethicone) 80 Mg Chw, 2 TAB PO BID 03/31/25 Current Medications Current Medications Medications (Trade) Dose Ordered Sig/Melonie Route PRN Reason Start Time Stop Time Status Last Admin Enoxaparin Sodium (Lovenox) 40 mg DAILY SC 04/26/25 10:00 04/26/25 08:57 Ceftriaxone Sodium 50 ml @ 100 mls/hr DAILY@09 IV 04/26/25 09:00 04/26/25 08:43 Metronidazole 100 ml @ 100 mls/hr Q8HR IV 04/25/25 22:00 04/26/25 13:51 Pantoprazole Sodium (Protonix) 40 mg DAILY IV 04/26/25 10:00 04/26/25 08:57 Diagnostic Test (Pha) (Accu-Chek Comfort Curve T) 1 strip Q6HR 04/25/25 18:00 04/26/25 17:16 Insulin Human Regular (InsuLIN R) Q6HR SC 04/25/25 18:00 04/26/25 11:36 Vital Signs Vital Signs Date Time Temp Pulse Resp B/P (MAP) Pulse Ox O2 Delivery O2 Flow Rate FiO2 04/26/25 16:59 98.8 53 16 157/89 (111) 98 98.8 04/26/25 08:00 Room Air* 0 21 Labs/Diagnostic Data Labs Test 04/26/25 17:10 04/26/25 06:13 04/25/25 09:36 04/25/25 09:12 Range/Units POC Glucose 121 H 70-106 mg/dl White Blood Count 4.7 # 4.4-10.8 10^3/uL Red Blood Count 3.76 L 4.0-5.20 10^6/uL Hemoglobin 12.3 12.2-16.2 g/dL Hematocrit 34.2 #L 36.0-46.0 % Mean Corpuscular Volume 90.9 80.0-100.0 fL Mean Corpuscular Hemoglobin 32.7 H 28.0-32.0 pg Mean Corpuscular Hemoglobin Concent 35.9 32.0-36.0 g/dL Red Cell Distribution Width 12.9 11.8-14.3 % Platelet Count 151 140-450 10^3/uL Mean Platelet Volume 8.3 6.9-10.8 fL Neutrophils (%) (Auto) 55.1 37.0-80.0 % Lymphocytes (%) (Auto) 34.4 10.0-50.0 % Monocytes (%) (Auto) 7.0 0.0-12.0 % Eosinophils (%) (Auto) 3.1 0.0-7.0 % Basophils (%) (Auto) 0.4 0.0-2.0 % Neutrophils # (Auto) 2.6 1.6-8.6 10 ^3/uL Lymphocytes # (Auto) 1.6 0.4-5.4 10 ^3/uL Monocytes # (Auto) 0.3 0-1.3 10 ^3/uL Eosinophils # (Auto) 0.1 0-0.8 10 ^3/uL Basophils # (Auto) 0 0-0.2 10 ^3/uL Nucleated Red Blood Cells 0.0 % Sodium Level 141 136-145 mmol/L Potassium Level 3.6 3.5-5.1 mmol/L Chloride Level 107 98-107 mmol/L Carbon Dioxide Level 27 20-31 mmol/L Anion Gap 7 5-15 Blood Urea Nitrogen 5 L 9-23 mg/dL Creatinine 0.65 0.550-1.02 mg/dL Glomerular Filtration Rate Calc 100 >90 mL/min BUN/Creatinine Ratio 7.7 L 10.0-20.0 Serum Glucose 146 H 74-106 mg/dL Calcium Level 8.6 L 8.7-10.4 mg/dL Magnesium Level 1.7 1.6-2.6 mg/dL Total Bilirubin 0.5 0.2-1.0 mg/dL Aspartate Amino Transferase (AST) 12 L 13-40 U/L Alanine Aminotransferase (ALT) 16 7-40 U/L Alkaline Phosphatase 66 46-116 U/L Total Protein 5.8 5.7-8.2 g/dL Albumin 3.7 3.2-4.8 g/dL Urine Color Light-yellow Yellow Urine Clarity Clear Clear Urine pH 5.0 5.0-9.0 Urine Specific [place] 1.011 1.001-1.035 Urine Protein Negative Negative Urine Ketones Negative Negative Urine Blood Negative Negative /uL Urine Nitrite Negative Negative Urine Bilirubin Negative Negative Urine Urobilinogen Normal Negative mg/dL Urine Leukocyte Esterase Negative Negative /uL Urine RBC <1 0 - 4 /hpf Urine Microscopic WBC 1 0-5 /HPF Urine Squamous Epithelial Cells Few <5 /hpf Urine Bacteria Few H None Seen /hpf Urine Glucose Normal Normal mg/dL Urine Opiates Screen Neg NEGATIVE Urine Fentanyl Screen Neg NEGATIVE Urine Barbiturates Screen Neg NEGATIVE Urine Phencyclidine Screen Neg NEGATIVE Urine Amphetamines Screen Neg NEGATIVE Urine Benzodiazepines Screen Neg NEGATIVE Urine Cocaine Screen Neg NEGATIVE Urine Cannabinoids Screen Pos NEGATIVE Direct Bilirubin 0.2 <0.3 mg/dL Thyroid Stimulating Hormone (TSH) 0.72 0.55-4.78 uIU/mL Microbiology Date/Time Source Procedure Growth Status 04/26/25 06:49 Nose MRSA Screen - Final Complete Assessment [id number] C/O ABD MILD PAIN CONSTIPATION AFEBRILE VSS ABD SOFT MILD TENDERNESS LOWER ABD CT SCAN NO ACUTE FINDINGS CONSERVATIVE MAG CITRATE FOR CONSTIPATION Plan discussed with: Patient RAMY CHEN MD Apr 26, 2025 17:29
--- NOTE | 2025-04-26 18:29 | DVHPNRES ---
Progress Note Date Seen: Apr 26, 2025 Resident Creating Document: SADIE KATZ RESIDENT Medical Necessity Reason Pt with a Central, PICC or Fol: No Subjective Review of Systems Patient is 60 years old female with past medical history of hypertension, diabetes mellitus type 2, hyperlipidemia, asthma, arthritis, history of diverticulosis with the diverticulitis came with a complaint of abdominal pain. As per patient she has been having abdominal pain started earlier this month which is going on for last couple of weeks but got worse for last 3 days, 7/10, constant, crampy in nature, associated nausea but not vomiting. Patient reported having hard stool during bowel movement. Denied any fever, dysuria, diarrhea, chest pain no shortness of breaths. Patient was recently discharged from [facility] on 04/07/2025 due to mildly perforated jejunal diverticulitis, patient was conservatively treated. Initial lab workup revealed random blood sugar 170. CT abdomen revealed possible mild colitis. Past Medical History-hypertension, diabetes mellitus type 2, hyperlipidemia, asthma, arthritis, history of diverticulosis Past Surgical History-None Past Social History-Denies smoking/alcoholism/drug abuse, lives at home Cardiovascular- deny acute chest pain or shortness of breath or cough or palpitation Respiratory denies cough or short of breath or wheezing Gastrointestinal- denies any rectal bleedingor vomiting Musculoskeletal-denies acute joint swelling or tenderness or redness Neurological- denies acute dysarthria, dysphagia, change in vision Psychiatry- denies depression or SI or HI Skin- denies acute rash or purpura Patient was seen today at bedside. Less than chart reviewed. Patient reported ongoing right lower abdominal pain. Ultrasound of the pelvis nonsignificant. Patient was seen by surgery, recommendation reviewed and appreciated. Surgery recommended magnesium citrate for constipation, conservative management. Objective vital signs Vital Sign Date Time Temp Pulse Resp B/P (MAP) Pulse Ox O2 Delivery O2 Flow Rate FiO2 04/26/25 16:59 98.8 53 16 157/89 (111) 98 98.8 04/26/25 08:00 Room Air* 0 21 Total Intake and Output 04/25/25 04/25/25 04/26/25 15:00 23:00 07:00 Intake Total 700 ml 100 ml Balance 700 ml 100 ml medications Current Medications Medications Dose Ordered Sig/Melonie Route Start Time Stop Time Status Last Admin Dose Admin Sodium Chloride 1,000 ml @ 120 mls/hr Q8H20M IV 04/25/25 15:30 04/26/25 05:41 120 MLS/HR Enoxaparin Sodium 40 mg DAILY SC 04/26/25 10:00 04/26/25 08:57 40 MG Morphine Sulfate 2 mg Q30M PRN IV 04/25/25 15:30 04/25/25 16:47 2 MG Ceftriaxone Sodium 50 ml @ 100 mls/hr DAILY@09 IV 04/26/25 09:00 04/26/25 08:43 100 MLS/HR Metronidazole 100 ml @ 100 mls/hr Q8HR IV 04/25/25 22:00 04/26/25 13:51 100 MLS/HR Pantoprazole Sodium 40 mg DAILY IV 04/26/25 10:00 04/26/25 08:57 40 MG Diagnostic Test (Pha) 1 strip Q6HR 04/25/25 18:00 04/26/25 17:16 1 STRIP Insulin Human Regular Q6HR SC 04/25/25 18:00 04/26/25 11:36 3 UNITS Dextrose 50 ml UD PRN IV 04/25/25 16:00 Albuterol 2.5 mg Q6HPRN PRN NEB 04/25/25 16:15 Cancel Ipratropium [place] 0.5 mg Q6HPRN PRN NEB 04/25/25 16:15 Cancel Morphine Sulfate 2 mg Q4HPRN PRN IV 04/25/25 16:45 04/26/25 03:11 2 MG Ondansetron HCl 4 mg Q4HPRN PRN IV 04/25/25 16:45 Acetaminophen 650 mg Q6HP PRN PO 04/26/25 18:15 UNV Examination General examination- awake, alert, oriented HEENT- PEERLA, no acute nasal discharge Cardiovascular- S1-S2 audible, rate and rhythm regular, no murmur Respiratory- CTAB, no wheeze or rhonchi Gastrointestinal-right lower abdominal tenderness+, bowel sound+. Nondistended Musculoskeletal-no acute joint swelling or tenderness or redness Lower extremity- no leg edema Neurological- cranial nerves intact, no acute dysarthria or dysphagia Psychiatry- denies depression or SI or HI Skin- no acute rash or purpura laboratory and microbiology Laboratory Tests 04/26/25 06:13 Test 04/26/25 06:13 Range/Units Serum Glucose 146 H 74-106 mg/dL Microbiology Date/Time Source Procedure Growth Status 04/26/25 06:49 Nose MRSA Screen - Final Complete Problem List/Assessment/Plan Problem List/Assessment/Plan Assessment and plan # acute abdominal pain, rule out acute appendicitis/salpingitis/cholecystitis/ureteric stone -CT abdomen revealed possible mild colitis -WBC WNL -right lower abdominal tenderness positive -status post surgery consult -clear liquid diet -continue IV normal saline as prescribed -continue IV ceftriaxone and IV metronidazole as prescribed -pending ultrasound of the lower abdomen for further evaluation and care # constipation -magnesium sided as prescribed -lactulose 30 mL b.i.d. # hypertension -monitor blood pressure # diabetes mellitus type 2 -insulin sliding scale NPO mild scale # nephrolithiasis -continue pain medication as prescribed # hyperlipidemia # history of arthritis # asthma no acute exacerbation -nebulization PRN # obesity BMI 37.9 Goals of care, Code status full code; discussed with >15 minutes PUD prophylaxis: Pantoprazole DVT prophylaxis: Lovenox Plan discussed with Dr. Faulkner , nursing staff, Total time spent on patient evaluation, chart review, assessment and plan, discussion discussion >35 minutes Plan discussed with: Patient, Other Plan discussed with: Patient, Other (RN) My Orders My Orders Orders - SADIE KATZ Procedure Category Date Status Time Pelvic US 04/26/25 Resulted 12:59 Date of Service: Apr 26, 2025 Billing Provider: SAIMA HOLLINGSWORTH MD Common Visit Codes: [id number] INP/OBS CARE(HIGH) SADIE KATZ Apr 26, 2025 18:29 SAIMA HOLLINGSWORTH MD Apr 29, 2025 22:18
[2025-04-26] MEDS: MAGNESIUM CITRATE SOLUTION 300 ML BTL PO ONE (18:32)
[2025-04-26] MEDS: ACETAMINOPHEN 325 MG TAB PO PRN (18:32)
--- NOTE | 2025-04-26 18:53 | DVHINCON2 ---
DATE OF CONSULTATION: 04/26/2025 HISTORY OF PRESENT ILLNESS: This patient is a 60-year-old with history of hypertension and diabetes coming with abdominal pain, not feeling better. No bowel activity, but passing gas. No hematemesis or melena. No bleeding per rectum. PAST MEDICAL HISTORY: Hypertension, diabetes, asthma, arthritis, history of diverticulosis. She had diverticulitis in the recent past that were resolved. She was sent home and now she comes back and the repeat CT scan is saying mild colitis with no acute issues noted on the CAT scan. PHYSICAL EXAMINATION: VITAL SIGNS: Currently, she is afebrile. Stable signs. HEENT: With no evidence of pallor, cyanosis, or jaundice. NECK: Supple, nontender with no thyromegaly or lymphadenopathy. CHEST AND LUNGS: Clear. HEART: Within normal limits. ABDOMEN: Soft, minimally tender. No rebound. EXTREMITIES: Unremarkable. NEUROLOGIC: Intact. CLINICAL IMPRESSION: Mild colitis with possible ileus. PLAN: Manage her conservatively, give her magnesium citrate for bowel activity and pain control and close observation. No indication for urgent surgery at this time. MD PAOLA Caruso/ANTONIO TID: [id number] RECEIPT: [id number] cc: JA MCLEOD
[2025-04-27 00:36] VITALS: BP 154/81; PULSE 60; RESP 19; TEMP 98.1; O2SAT 94
[2025-04-27 05:00] VITALS: BP 165/80; PULSE 50; RESP 18; TEMP 97.9; O2SAT 96
[2025-04-27 06:04] LABS: Calcium 8.7 mg/dL (8.7-10.4); Potassium 3.7 mmol/L (3.5-5.1); Sodium 141 mmol/L (136-145)
[2025-04-27 06:05] LABS: Anion Gap 8 (5-15); Carbon Dioxide 26 mmol/L (20-31)
[2025-04-27 06:12] VITALS: BP 137/74; PULSE 60; RESP 16; TEMP 98
[2025-04-27 06:27] LABS: BUN/Creatinine Ratio 8.8 (10.0-20.0); Blood Urea Nitrogen < 5 mg/dL (9-23); Chloride 107 mmol/L (98-107); Glucose 127 mg/dL (74-106)
[2025-04-27] MEDS: LACTULOSE 20Gm/30ML SOLN PO ONE (07:16)
[2025-04-27 09:00] VITALS: BP 141/71; PULSE 51; RESP 16; TEMP 98.7; O2SAT 97
[2025-04-27] MEDS: LACTULOSE 20Gm/30ML SOLN PO SCH (09:42)
[2025-04-27 13:00] VITALS: BP 134/84; PULSE 69; RESP 20; TEMP 97.1; O2SAT 97
--- NOTE | 2025-04-27 15:02 | DVHPN2 ---
Progress Note Date Seen: Apr 27, 2025 Medical Necessity Reason Pt with a Central, PICC or Fol: No Objective vital signs Vital Sign Date Time Temp Pulse Resp B/P (MAP) Pulse Ox O2 Delivery O2 Flow Rate FiO2 04/27/25 13:00 97.1 69 20 134/84 (101) 97 97.1 04/27/25 08:00 Room Air* 0 21 Total Intake and Output 04/26/25 04/26/25 04/27/25 15:00 23:00 07:00 Intake Total 100 ml 740 ml Balance 100 ml 740 ml medications Current Medications Medications Dose Ordered Sig/Melonie Route Start Time Stop Time Status Last Admin Dose Admin Enoxaparin Sodium 40 mg DAILY SC 04/26/25 10:00 04/27/25 09:35 40 MG Morphine Sulfate 2 mg Q30M PRN IV 04/25/25 15:30 04/25/25 16:47 2 MG Ceftriaxone Sodium 50 ml @ 100 mls/hr DAILY@09 IV 04/26/25 09:00 04/27/25 09:42 100 MLS/HR Metronidazole 100 ml @ 100 mls/hr Q8HR IV 04/25/25 22:00 04/27/25 06:03 100 MLS/HR Pantoprazole Sodium 40 mg DAILY IV 04/26/25 10:00 04/27/25 09:34 40 MG Diagnostic Test (Pha) 1 strip Q6HR 04/25/25 18:00 04/27/25 11:32 1 STRIP Insulin Human Regular Q6HR SC 04/25/25 18:00 04/27/25 11:31 6 UNITS Dextrose 50 ml UD PRN IV 04/25/25 16:00 Albuterol 2.5 mg Q6HPRN PRN NEB 04/25/25 16:15 Cancel Ipratropium Rule 0.5 mg Q6HPRN PRN NEB 04/25/25 16:15 Cancel Morphine Sulfate 2 mg Q4HPRN PRN IV 04/25/25 16:45 04/26/25 03:11 2 MG Ondansetron HCl 4 mg Q4HPRN PRN IV 04/25/25 16:45 Acetaminophen 650 mg Q6HP PRN PO 04/26/25 18:15 04/27/25 04:22 650 MG Lactulose 30 ml BID PO 04/27/25 10:00 laboratory and microbiology Laboratory Tests 04/27/25 05:01 04/26/25 06:13 Test 04/27/25 05:01 Range/Units Serum Glucose 127 H 74-106 mg/dL Microbiology Date/Time Source Procedure Growth Status 04/26/25 06:49 Nose MRSA Screen - Final Complete Problem List/Assessment/Plan Problem List/Assessment/Plan AFEBRILE VSS ABD SOFT NON TENDER RESOLVING COLITIS ADVANCE DIET [place]BER[place] CLEARED FOR DISCHARGE Plan discussed with: Patient My Orders My Orders Orders - RAMY CHEN MD Procedure Category Date Status Time Acetaminophen Tablet PHA 04/26/25 In Process (Tylenol Tablet) 18:15 RAMY CHEN MD Apr 27, 2025 15:02
--- NOTE | 2025-04-27 15:34 | DVHDSRES ---
Discharge Summary Date of Admission Resident Creating Document: SADIE KATZ RESIDENT Apr 25, 2025 at 15:22 Date of Discharge: Apr 27, 2025 Admitting Diagnosis Acute abdominal pain likely due to Acute colitis Labs/Diagnostic Data: Laboratory Results Test 04/27/25 11:18 04/27/25 05:01 04/26/25 06:13 04/25/25 09:36 POC Glucose 259 mg/dl (70-106) Sodium Level 141 mmol/L (136-145) Potassium Level 3.7 mmol/L (3.5-5.1) Chloride Level 107 mmol/L (98-107) Carbon Dioxide Level 26 mmol/L (20-31) Anion Gap 8 (5-15) Blood Urea Nitrogen < 5 mg/dL (9-23) Creatinine 0.57 mg/dL (0.550-1.02) Glomerular Filtration Rate Calc 103 mL/min (>90) BUN/Creatinine Ratio 8.8 (10.0-20.0) Serum Glucose 127 mg/dL (74-106) Calcium Level 8.7 mg/dL (8.7-10.4) White Blood Count 4.7 10^3/uL (4.4-10.8) Red Blood Count 3.76 10^6/uL (4.0-5.20) Hemoglobin 12.3 g/dL (12.2-16.2) Hematocrit 34.2 % (36.0-46.0) Mean Corpuscular Volume 90.9 fL (80.0-100.0) Mean Corpuscular Hemoglobin 32.7 pg (28.0-32.0) Mean Corpuscular Hemoglobin Concent 35.9 g/dL (32.0-36.0) Red Cell Distribution Width 12.9 % (11.8-14.3) Platelet Count 151 10^3/uL (140-450) Mean Platelet Volume 8.3 fL (6.9-10.8) Neutrophils (%) (Auto) 55.1 % (37.0-80.0) Lymphocytes (%) (Auto) 34.4 % (10.0-50.0) Monocytes (%) (Auto) 7.0 % (0.0-12.0) Eosinophils (%) (Auto) 3.1 % (0.0-7.0) Basophils (%) (Auto) 0.4 % (0.0-2.0) Neutrophils # (Auto) 2.6 10 ^3/uL (1.6-8.6) Lymphocytes # (Auto) 1.6 10 ^3/uL (0.4-5.4) Monocytes # (Auto) 0.3 10 ^3/uL (0-1.3) Eosinophils # (Auto) 0.1 10 ^3/uL (0-0.8) Basophils # (Auto) 0 10 ^3/uL (0-0.2) Nucleated Red Blood Cells 0.0 % Magnesium Level 1.7 mg/dL (1.6-2.6) Total Bilirubin 0.5 mg/dL (0.2-1.0) Aspartate Amino Transferase (AST) 12 U/L (13-40) Alanine Aminotransferase (ALT) 16 U/L (7-40) Alkaline Phosphatase 66 U/L (46-116) Total Protein 5.8 g/dL (5.7-8.2) Albumin 3.7 g/dL (3.2-4.8) Urine Color Light-yellow (Yellow) Urine Clarity Clear (Clear) Urine pH 5.0 (5.0-9.0) Urine Specific [place] 1.011 (1.001-1.035) Urine Protein Negative (Negative) Urine Ketones Negative (Negative) Urine Blood Negative /uL (Negative) Urine Nitrite Negative (Negative) Urine Bilirubin Negative (Negative) Urine Urobilinogen Normal mg/dL (Negative) Urine Leukocyte Esterase Negative /uL (Negative) Urine RBC <1 /hpf (0 - 4) Urine Microscopic WBC 1 /HPF (0-5) Urine Squamous Epithelial Cells Few /hpf (<5) Urine Bacteria Few /hpf (None Seen) Urine Glucose Normal mg/dL (Normal) Urine Opiates Screen Neg (NEGATIVE) Urine Fentanyl Screen Neg (NEGATIVE) Urine Barbiturates Screen Neg (NEGATIVE) Urine Phencyclidine Screen Neg (NEGATIVE) Urine Amphetamines Screen Neg (NEGATIVE) Urine Benzodiazepines Screen Neg (NEGATIVE) Urine Cocaine Screen Neg (NEGATIVE) Urine Cannabinoids Screen Pos (NEGATIVE) Test 04/25/25 09:12 Direct Bilirubin 0.2 mg/dL (<0.3) Thyroid Stimulating Hormone (TSH) 0.72 uIU/mL (0.55-4.78) Other Laboratory Tests 04/27/25 05:01 04/26/25 06:13 Brief Hx & Hospital Course: Patient is 60 years old female with past medical history of hypertension, diabetes mellitus type 2, hyperlipidemia, asthma, arthritis, history of diverticulosis with the diverticulitis came with a complaint of abdominal pain. As per patient she has been having abdominal pain started earlier this month which is going on for last couple of weeks but got worse for last 3 days, 7/10, constant, crampy in nature, associated nausea but not vomiting. Patient reported having hard stool during bowel movement. Denied any fever, dysuria, diarrhea, chest pain no shortness of breaths. Patient was recently discharged from [facility] on 04/07/2025 due to mildly perforated jejunal diverticulitis, patient was conservatively treated. Initial lab workup revealed random blood sugar 170. CT abdomen revealed possible mild colitis. Hospital course- Patient is 60 years old female with past medical history of hypertension, diabetes mellitus type 2, hyperlipidemia, asthma, arthritis, history of diverticulosis with the diverticulitis came with a complaint of abdominal pain. As per patient she has been having abdominal pain started earlier this month which is going on for last couple of weeks but got worse for last 3 days, 7/10, constant, crampy in nature, associated nausea but not vomiting. Patient reported having hard stool during bowel movement. Denied any fever, dysuria, diarrhea, chest pain no shortness of breaths. Patient was recently discharged from [facility] on 04/07/2025 due to mildly perforated jejunal diverticulitis, patient was conservatively treated. Initial lab workup revealed random blood sugar 170. CT abdomen revealed possible mild colitis. Patient was treated conservatively with IV antibiotic ceftriaxone and metronidazole and IV fluid. Patient's symptom improved gradually, patient was seen by surgeon Dr. Nichole, recommended for conservative management. Patient's symptoms improved gradually, patient is being discharged home with the advice of avoid constipation and dehydration. Patient is being discharged home with the Augmentin 875 mg p.o. b.i.d. for 5 days. Patient's meds were sent to the pharmacy electronically. Patient was hemodynamically stable on discharge. Assessment # acute abdominal pain, rule out acute appendicitis/salpingitis/cholecystitis/ureteric stone # constipation # hypertension # diabetes mellitus type 2 # nephrolithiasis # hyperlipidemia # history of arthritis # asthma no acute exacerbati # obesity Plan Augmentin 875 mg p.o. b.i.d. for 5 days MiraLax 17 g p.o. daily PRN Colace 100 mg p.o. b.i.d.-hold if diarrhea Lactulose 30 mL p.o. daily for 7 days-hold if diarrhea Resume other home medications Avoid dehydration and constipation Please follow up with the primary care physician in 1 week Follow up with Dr. Nichole surgeon in 2 weeks Operations or Procedures [place] [id number] Ph: [phone] DIAGNOSTIC IMAGING Diagnostic Imaging Report : [id number] Signed PATIENT: OLGA ALCT: [id number] UNIT: [id number] : 1965 LOC: ER ROOM / BED: / AGE / SEX: 60 / F ADM STATUS: REG ER SERVICE 0856 ORDERING PHYSICIAN: MICKEY BLEVINS MD PROCEDURE(s): ABPL - CT AB PEL WO CON-NO ORAL OR IV REASON: colitis ORDER NUMBER(s): [id number], ACCESSION NUMBER(s): [id number] Exam: CT CT AB PEL WO CON-NO ORAL OR IV History: colitis Comparison Study: CT CT AB PEL WO CON-NO ORAL OR IV on DOS: 04/02/25, CT CT AB PEL WO CON-NO ORAL OR IV on DOS: 03/31/25, CT CT AB PEL WO CON-NO ORAL OR IV on DOS: 02/04/23 Technique: Multidetector spiral CT of the abdomen was performed from lung bases to pubic symphysis. Imaging was performed without IV contrast. Axial, coronal and sagittal multiplanar reformats were obtained from the axial data set by the technologist. Radiation Dose : 1. Abdomen/Pelvis: CTDIvol 22.62 mGy, DLP 1222.7 mGy*cm. Findings: Evaluation of solid organs is limited due to lack of intravenous contrast use. Lung Bases: No acute or significant lung base finding. Normal heart size. No pleural or pericardial effusion. Liver: The liver is normal in size. No focal lesions. Gallbladder and Biliary Tree: Unremarkable Spleen: Unremarkable Pancreas: The pancreas is grossly normal in appearance. Adrenal Glands: Unremarkable Kidneys: No hydronephrosis. 0.1 cm nonobstructing stone in the right mid kidney. Left kidney is unremarkable. Bladder: Grossly unremarkable for degree of distention. Bowel: The stomach is grossly normal in appearance. Diverticulosis. Mild colonic bowel wall thickening. The appendix is not visualized; however, no secondary findings of acute appendicitis identified. Ascites: Absent Lymphadenopathy: No mesenteric, retroperitoneal or periportal lymphadenopathy. Abdominal Wall and Mesentery: Unremarkable. Vasculature: The visualized abdominal aorta is normal in size and caliber. Evaluation of abdominal and pelvic vessels is limited due to lack of intravenous contrast. Pelvic Organs: Unremarkable Musculoskeletal: No aggressive focal bony lesions, acute fractures or dislocation. IMPRESSION: Possible mild colitis. Diverticulosis. Punctate 0.1 cm nonobstructing stone in the right mid kidney. ATED BY: JT SMALLS MD DICTATED DATE/TIME: 04/25/2548 SIGNED BY: JT SMALLS MD SIGNED DATE/TIME: 04/25/25947 CC: [place] [id number] Ph: [phone] DIAGNOSTIC IMAGING Diagnostic Imaging Report : [id number] Signed PATIENT: OLGA ALCT: [id number] UNIT: [id number] : 1965 LOC: ER ROOM / BED: / AGE / SEX: 60 / F ADM STATUS: REG ER SERVICE 24 ORDERING PHYSICIAN: SADIE KATZ RESIDENT PROCEDURE(s): RTLQD - RIGHT LOWER QUAD REASON: R/O APPENDICITIS PER RESIDENT STERLING ORDER NUMBER(s): [id number], ACCESSION NUMBER(s): [id number] EXAM: US RIGHT LOWER QUAD CLINICAL HISTORY: R/O APPENDICITIS PER RESIDENT STERLING COMPARISON: None TECHNIQUE: Real-time ultrasound of the right lower quadrant was performed utilizing a high resolution linear transducer. Findings and Impression: The appendix is not definitively visualized. Cannot exclude acute appendicitis. If clinically indicated, CT or MR may be useful for further evaluation. No free fluid, focal fluid collections, or free air noted within the right lower quadrant. ATED BY: GABRIELLA ASHTON DO DICTATED DATE/TIME: 08/27/25 1635 SIGNED BY: GABRIELLA ASHTON DO SIGNED DATE/TIME: 04/25/25 163 CC: [place] [id number] Ph: [phone] DIAGNOSTIC IMAGING Diagnostic Imaging Report : [id number] Signed PATIENT: OLGA ALCT: [id number] UNIT: [id number] : 1965 LOC: [facility] ROOM / BED: [facility] / A AGE / SEX: 60 / F ADM STATUS: ADM IN SERVICE 1259 ORDERING PHYSICIAN: SADIE KATZ RESIDENT PROCEDURE(s): PELUS - PELVIC REASON: pain in lower abdomen ORDER NUMBER(s): [id number], ACCESSION NUMBER(s): [id number] Technique: Real-time ultrasound images through the pelvis using a transabdominal transducer. Indication: pain in lower abdomen Comparison: None Findings: The uterus measures 11.1 cm. The endometrial stripe measures 1 mm. There are no focal masses. There is no abnormal flow in the endometrium. Right ovary measures 2.5 x 1.9 x 2.1 cm. Normal flow on color doppler images. No focal masses are identified. Left ovary measures 2 x 1.0 x 1.6 cm. Normal flow on color doppler images. No focal masses are identified. There is no significant free fluid in the pelvis. Impression: Unremarkable transabdominal pelvic ultrasound. ATED BY: ANN ZAMBRANO MD DICTATED DATE/TIME: 04/26/25 1358 SIGNED BY: ANN ZAMBRANO MD SIGNED DATE/TIME: 04/26/25 1358 CC: Condition at Discharge: Stable Final Diagnosis/Problems List # acute abdominal pain, rule out acute appendicitis/salpingitis/cholecystitis/ureteric stone # constipation # hypertension # diabetes mellitus type 2 # nephrolithiasis # hyperlipidemia # history of arthritis # asthma no acute exacerbati # obesity Discharge Disposition: Home Discharge Instruct/Medications Follow Up/Referral: Please follow up with the primary care physician in 1 week Follow up with Dr. Nichole surgeon in 2 weeks Medications: Augmentin 875 mg p.o. b.i.d. for 5 days MiraLax 17 g p.o. daily PRN Colace 100 mg p.o. b.i.d.-hold if diarrhea Lactulose 30 mL p.o. daily for 7 days-hold if diarrhea Resume other home medications Avoid dehydration and constipation Please follow up with the primary care physician in 1 week Follow up with Dr. Nichole surgeon in 2 weeks Scheduled Amoxicillin & Pot Clavulanate (Augmentin Tablet), 875 MG PO BID Atorvastatin Calcium (Atorvastatin Calcium), 1 TAB PO HS, (Reported) Docusate Sodium (Colace), 1 CAP PO BID Furosemide (Furosemide), 1 TAB PO DAILY, (Reported) Lactulose (Lactulose), 20 GM PO DAILY Levofloxacin Hemihydrate (Levaquin 500 Mg), 1 TAB PO DAILY Losartan Potassium (Losartan Potassium), 1 TAB PO DAILY, (Reported) Metronidazole (Flagyl), 1 TAB PO TID Pantoprazole Sodium Sesquihydr (Pantoprazole Sodium Dr), 1 TAB PO DAILY, (Reported) Pantoprazole Sodium Sesquihydr (Pantoprazole Sodium), 40 MG PO BID Simethicone (Simethicone), 2 TAB PO BID, (Reported) Simethicone (Simethicone), 1 TAB PO Q8HR Tizanidine HCl (Tizanidine Hydrochloride), 1 CAP PO TID, (Reported) Scheduled PRN Ondansetron HCl (Ondansetron Hydrochloride), 1 TAB PO Q8HP PRN, (Reported) Discharge Statement: "Patient was advised to return to the ER or call 911 if any headaches, dizziness, shortness of breath, chest pain, abdominal pain, bleeding, fevers, or worsening of medical condition. Patient was counseled about treatment plan, medications, possible side effects, patientverbalized understanding. All questions were answered to the best of my ability. This discharge took greater then 30 minutes in planning, reviewing documentation, counseling the patient, and discussing with other team members." ASSESSMENT ASSESSMENT Assessment Date of Service: Apr 27, 2025 Billing Provider: SAIMA HOLLINGSWORTH MD Common Visit Codes: [id number] INP/OBS CARE(HIGH) SADIE KATZ RESIDENT Apr 27, 2025 15:34 SAIMA HOLLINGSWORTH MD Apr 29, 2025 22:58
[2025-04-27] MEDS ORDERED: DOCU-94 PO (15:36)
[2025-04-27] MEDS ORDERED: LACT10SO3 PO (15:36)
[2025-04-27] MEDS ORDERED: AUG875T PO (15:36)
[2025-04-27 16:35] VITALS: BP 145/94; PULSE 58; RESP 18; TEMP 98.7; O2SAT 98
== END 2025-04-27 18:45 | disposition home or self-care (01) ==
LOC: ER 08:36 → OVERFLOW 15:22 → WEST WING 23:25
PROVIDERS: ADMIT Student in an Organized Health Care Education/Training Program; ATTEND Emergency Medicine
DX: K81.9 Cholecystitis, unspecified (principal); K35.80 Unspecified acute appendicitis; N20.2 Calculus of kidney with calculus of ureter; I10 Essential (primary) hypertension; J45.909 Unspecified asthma, uncomplicated; E66.9 Obesity, unspecified; Z68.37 Body mass index [BMI] 37.0-37.9, adult; E11.9 Type 2 diabetes mellitus without complications; N70.91 Salpingitis, unspecified; E78.5 Hyperlipidemia, unspecified; K59.00 Constipation, unspecified; K52.9 Noninfective gastroenteritis and colitis, unspecified
CPT/HCPCS: 36415; 74176; 76705; 76856; 80048; 80053; 80076; 80307; 81001; 82962; 83735; 84443; 85025; 87081; G0378; J1815; J2405; J2470; J2543; J3490